=== PATIENT | male | born 1950 | race Caucasian/White ===

== ENCOUNTER 2019-02-19 21:35 | Observation (INO) | payer MEDICARE ==
--- NOTE | 2019-02-19 22:34 | ERPHSYRPT ---
- History of Present Illness Time Seen by Provider: 02/19/19 22:33 Source: patient, family Exam Limitations: no limitations Patient Subjective Stated Complaint: pt states he has been feeling feverish, cough, tired x3 days. pt states he is feeling very tired and body aches when he tries to ambulate. Triage Nursing Assessment: pt rates pain as 5/10 while walking genrally to body Physician History: Pt is here with several days of cough and nausea. Pt notes that he feels that he has been possibly running a fever. Pt notes that he has no appetite and doesn 't feel like he can eat anything. Pt has been able to drink some water and some pepsi. Pt has a Hx of COPD and has had CHF in the past. Pt hsas no knowledge or hx of Atrial fibrilation. Pt is short of breath and is wheezing. Pt doesn't smoke any more. Pt's daughter or young female family member possibly granddaughter is here with him. Timing/Duration: day(s) (3 days, but worse today) Cough Quality/Degree: moderate, productive cough, sputum Possible Cause: occasional episodes Modifying Factors: Improves With: albuterol nebulizer, coughing Associated Symptoms: chest pain/soreness, cough, nasal congestion, wheezing International travel in last 2 weeks: No Allergies/Adverse Reactions: No Known Drug Allergies Allergy (Verified 02/19/19 22:00) Home Medications: Aspirin 81 gm Chew [Baby Aspirin 81 mg Chew] 81 mg PO DAILY 05/14/14 [ History] Atorvastatin Calcium 40 mg PO HS 05/14/14 [History] Citalopram Hydrobromide [Citalopram HBr] 40 mg PO DAILY 05/14/14 [History] Clopidogrel Bisulfate 75 mg [PLAVIX 75 MG Tablet] 75 mg PO DAILY 05/14/14 [History] Furosemide 40 mg PO DAILY 05/14/14 [History] Hydralazine HCl 10 mg PO BID 05/14/14 [History] Isosorbide Dinitrate 10 mg [Isordil 10 MG] 10 mg PO TID 05/14/14 [History] Metoprolol Tartrate 25 mg [Lopressor 25MG Tab] 12.5 mg PO BID 05/14/14 [ History] Hx Tetanus, Diphtheria Vaccination/Date Given: (UNKNOWN) Hx Influenza Vaccination/Date Given: Yes (10/23/2013) Hx Pneumococcal Vaccination/Date Given: Yes (01/01/2014) - Review of Systems Constitutional: Fever, Chills, Fatigue, Lethargy, Malaise Eyes: No Symptoms Ears, Nose, & Throat: Hoarse Respiratory: Cough, Dyspnea, Dyspnea on Exertion ([place]), Wheezing Cardiac: Chest Pain, No Edema, No Syncope Abdominal/Gastrointestinal: Nausea, No Vomiting, No Diarrhea, No Constipation Genitourinary Symptoms: No Symptoms Musculoskeletal: No Symptoms Skin: No Symptoms Neurological: No Symptoms Psychological: No Symptoms Endocrine: No Symptoms All Other Systems: Reviewed and Negative - Past Medical History Pertinent Past Medical History: Yes Neurological History: No Pertinent History ENT History: No Pertinent History Cardiac History: High Cholesterol, Hypertension, Other Respiratory History: COPD Endocrine Medical History: Other Musculoskeletal History: No Pertinent History GI Medical History: No Pertinent History History: Other Psycho-Social History: No Pertinent History Male Reproductive Disorders: No Pertinent History Other Medical History: HYPERLIPIDEMIA. SECONDARY. HYPERPARATHYROIDISM. ARF/ CHRONIC RENAL FAILURE - Past Surgical History Past Surgical History: Yes Neuro Surgical History: No Pertinent History Cardiac: Cardiac Catheterization, Cardiac Stent Respiratory: No Pertinent History Gastrointestinal: No Pertinent History Genitourinary: No Pertinent History Musculoskeletal: No Pertinent History Male Surgical History: No Pertinent History Other Surgical History: DOES HAVE ONE HEART STENT 03/2014, kidney stent 2014 - Social History Smoking Status: Former smoker Exposure to second hand smoke: Yes ([place]) Drug Use: none Patient Lives Alone: No - Nursing Vital Signs Nursing Vital Signs: Initial Vital Signs Temperature 97.4 F 02/19/19 21:43 Pulse Rate 86 02/19/19 21:43 Respiratory Rate 18 02/19/19 21:43 Blood Pressure 111/79 02/19/19 21:43 O2 Sat by Pulse Oximetry 96 02/19/19 21:43 Pain Scale Pain Intensity 5 - Physical Exam General Appearance: no apparent distress, alert, lethargy Eye Exam: PERRL/EOMI, eyes nml inspection, No scleral icterus, No photophobia Ears, Nose, Throat Exam: normal ENT inspection, No pharyngeal erythema, No tonsillar exudate Neck Exam: normal inspection Respiratory Exam: normal breath sounds, prolonged expirations, wheezing, No pleural rub Cardiovascular Exam: regular rate/rhythm, irregular, No murmur, No edema, No pulse deficit Gastrointestinal/Abdomen Exam: soft, normal bowel sounds, No tenderness, No distention, No mass, No guarding, No ecchymosis Rectal Exam: not done Back Exam: normal inspection Extremity Exam: normal inspection, normal range of motion, No tenderness Neurologic Exam: alert, oriented x 3, cooperative, operating room specialist II-XII nml as tested, normal mood/affect, nml cerebellar function, nml station & gait, No motor deficits, No sensory deficit, No disoriented, No motor weakness, No facial droop , No slurred speech, No aphasia Skin Exam: normal color, warm, dry, No rash Lymphatic Exam: No adenopathy SpO2 Interpretation: normal SpO2: 96 O2 Delivery: Nasal Cannula - Course Nursing assessment & vital signs reviewed: Yes EKG Interpreted by Me: RATE ([id number]), NORMAL AXIS, Non-specific ST Changes Rhythm Strip: Atrial Fibrillation Ordered Tests: Active Orders 24 hr Category Date Time Status Admission Status Change [Change to Full Admit] ROUTINE Care 02/20/19 03:10 Active EKG-ER Only STAT Care 02/19/19 22:50 Active IV Insertion STAT Care 02/19/19 22:50 Active CHEST 2 VIEWS (PA AND LAT) Stat Exams 02/19/19 22:53 Taken BLOOD CULTURE Stat Lab 02/19/19 23:17 Received CBC W DIFF Stat Lab 02/19/19 23:00 Completed CMP Stat Lab 02/19/19 23:17 Completed D-DIMER QUANTITATIVE Stat Lab 02/20/19 00:00 Completed Lactic Acid Stat Lab 02/19/19 22:50 Completed Respiratory Therapy Assessment ONCE RT 02/20/19 00:32 Active Transfer Order Routine Transfer 02/20/19 Ordered Medication Summary Generic Name Dose Route Start Last Admin Trade Name Freq PRN Reason Stop Dose Admin Enoxaparin Sodium 70 mg 02/20/19 03:15 Enoxaparin Sodium 1 mg/kg (70 mg) 03/22/19 03:14 SQ Q12H KARISSA Azithromycin 500 mg in 250 mls @ 250 mls/hr 02/20/19 03:09 Zithromax 500 Mg/ 250 Ml Nacl Premix IV 02/20/19 04:08 STAT STA Metoprolol Succinate 25 mg 02/20/19 10:00 Toprol-Xl 25mg Tablets PO 03/22/19 09:59 DAILY KARISSA Ondansetron HCl 4 mg 02/20/19 03:15 Zofran 2 Mg/Ml Multi Dose Vial 20 Ml IV 03/22/19 03:14 Q8H/PRN PRN NAUSEA Discontinued Medications Generic Name Dose Route Start Last Admin Trade Name Freq PRN Reason Stop Dose Admin Acetaminophen 650 mg 02/19/19 22:50 02/19/19 23:10 Tylenol 325 Mg PO 02/19/19 22:51 650 mg STAT ONE Administration Acetaminophen Confirm 02/19/19 23:07 Tylenol 325 Mg Administered 02/19/19 23:08 Dose 650 mg .ROUTE .STK-MED ONE Albuterol/Ipratropium 3 ml 02/19/19 22:50 02/20/19 00:28 Duoneb 0.5-3 Mg/3 Ml Neb IH 02/19/19 22:51 3 ml STAT ONE Administration Albuterol/Ipratropium Confirm 02/20/19 00:25 Duoneb 0.5-3 Mg/3 Ml Neb Administered 02/20/19 00:26 Dose 3 ml IH .STK-MED ONE Sodium Chloride 1,000 mls @ 999 mls/hr 02/19/19 22:50 02/19/19 23:11 Sodium Chloride 0.9% 1000 Ml IV 02/19/19 23:50 999 mls/hr .Q1H1M STA Administration Sodium Chloride Confirm 02/19/19 23:07 Sodium Chloride 0.9% 1000 Ml Administered 02/19/19 23:08 Dose 1,000 mls @ ud .ROUTE .STK-MED ONE Methylprednisolone Sodium Succinate 80 mg 02/20/19 03:08 Solu-Medrol 125 Mg IV 02/20/19 03:09 STAT ONE Ondansetron HCl 4 mg 02/19/19 22:50 02/19/19 23:11 Zofran 4 Mg/2 Ml Vial IV 02/19/19 22:51 4 mg STAT ONE Administration Ondansetron HCl Confirm 02/19/19 23:06 Zofran 4 Mg/2 Ml Vial Administered 02/19/19 23:07 Dose 4 mg .ROUTE .STK-MED ONE Lab/Rad Data: Laboratory Result Diagrams 02/19/19 23:00 12/29/19 23:17 Laboratory Results 02/20/19 02/19/19 02/19/19 Range/Units 00:00 23:17 23:17 WBC (4.0-10.5) K/mm3 RBC (4.1-5.6) M/mm3 Hgb (12.5-18.0) gm/dl Hct (42-50) % MCV (78-100) fl MCH (26-32) pg MCHC (32-36) g/dl RDW (11.5-14.0) % Plt Count (150-450) K/mm3 MPV (6-9.5) fl Gran % (36.0-66.0) % Eos # (Auto) (0-0.5) Absolute Lymphs (auto) (1.0-4.6) Absolute Monos (auto) (0.0-1.3) Lymphocytes % (24.0-44.0) % Monocytes % (0.0-12.0) % Eosinophils % (0.00-5.0) % Basophils % (0.0-0.4) % Absolute Granulocytes (1.4-6.9) Basophils # (0-0.4) D-Dimer 266 (215-500) ng/mL Sodium 136 L (137-145) mmol/L Potassium 3.9 (3.5-5.1) mmol/L Chloride 96 L (98-107) mmol/L Carbon Dioxide 31 H (22-30) mmol/L Anion Gap 12.7 (5-15) MEQ/L BUN 23 H (9-20) mg/dL Creatinine 1.54 H (0.66-1.25) mg/dL Estimated GFR 47.7 ML/MIN Glucose 124 H (74-106) mg/dL Lactic Acid (0.4-2.0) Calcium 8.9 (8.4-10.2) mg/dL Total Bilirubin 0.60 (0.2-1.3) mg/dL AST 33 (17-59) U/L ALT 17 (0-50) U/L Alkaline Phosphatase 84 (38-126) U/L Serum Total Protein 7.4 (6.3-8.2) g/dL Albumin 4.1 (3.5-5.0) g/dL Influenza Type A Ag NEGATIVE (NEGATIVE) Influenza Type B Ag NEGATIVE (NEGATIVE) RSV (PCR) NEGATIVE (Negative) 02/19/19 02/19/19 Range/Units 23:00 22:50 WBC 9.3 (4.0-10.5) K/mm3 RBC 4.82 (4.1-5.6) M/mm3 Hgb 14.3 (12.5-18.0) gm/dl Hct 43.3 (42-50) % MCV 89.8 (78-100) fl MCH 29.7 (26-32) pg MCHC 33.0 (32-36) g/dl RDW 13.9 (11.5-14.0) % Plt Count 154 (150-450) K/mm3 MPV 10.9 H (6-9.5) fl Gran % 83.9 H (36.0-66.0) % Eos # (Auto) 0.01 (0-0.5) Absolute Lymphs (auto) 0.64 L (1.0-4.6) Absolute Monos (auto) 0.84 (0.0-1.3) Lymphocytes % 6.9 L (24.0-44.0) % Monocytes % 9.0 (0.0-12.0) % Eosinophils % 0.1 (0.00-5.0) % Basophils % 0.1 (0.0-0.4) % Absolute Granulocytes 7.81 H (1.4-6.9) Basophils # 0.01 (0-0.4) D-Dimer (215-500) ng/mL Sodium (137-145) mmol/L Potassium (3.5-5.1) mmol/L Chloride (98-107) mmol/L Carbon Dioxide (22-30) mmol/L Anion Gap (5-15) MEQ/L BUN (9-20) mg/dL Creatinine (0.66-1.25) mg/dL Estimated GFR ML/MIN Glucose (74-106) mg/dL Lactic Acid 1.3 (0.4-2.0) Calcium (8.4-10.2) mg/dL Total Bilirubin (0.2-1.3) mg/dL AST (17-59) U/L ALT (0-50) U/L Alkaline Phosphatase (38-126) U/L Serum Total Protein (6.3-8.2) g/dL Albumin (3.5-5.0) g/dL Influenza Type A Ag (NEGATIVE) Influenza Type B Ag (NEGATIVE) RSV (PCR) (Negative) - Progress Progress: improved Air Movement: fair Progress Note: 02/20/19 04:12 Pt negative for the flu or strep and CXR shows only emphysematous changes. D- dimer was negative. Pt in new Atrial fib./EKG. I discussed this pt with Dr. Blake and we decided that his COPD exacerbation and new A.Fib can be tanken care of here and worked out. Pt could have a cardiology consult by [facility]. All labs and x-rays were considered in this pt's placement. - Departure Departure Disposition: In-patient Admission Clinical Impression: COPD with exacerbation, New onset atrial fibrillation Condition: Stable Critical Care Time: No Referrals: YANIV HARO, [facility] [Primary Care Provider] - Instructions: Chronic Obstructive Pulmonary Disease Plan of Treatment: I discussed this pt with Dr. Ellyn Blake and he agreed to admit this pt For monitering sand management of new A. fib and COPD exacerbation as well as pt's nausea.
[2019-02-19] MEDS ORDERED: Zofran 4 MG/2 ML VIAL IV ONE (22:50)
[2019-02-19] MEDS ORDERED: TYLENOL 325 MG PO ONE (22:50)
[2019-02-19] MEDS ORDERED: DUONEB 0.5-3 MG/3 ml Neb IH ONE (22:50)
[2019-02-19] MEDS ORDERED: Sodium Chloride 0.9% 1000 ML 1,000 ML IV STA (22:50)
[2019-02-19] MEDS ORDERED: Zofran 4 MG/2 ML VIAL ONE (23:06)
[2019-02-19] MEDS ORDERED: Sodium Chloride 0.9% 1000 ML 1,000 ML ONE (23:07)
[2019-02-19] MEDS ORDERED: TYLENOL 325 MG ONE (23:07)
[2019-02-19 23:21] LABS: Absolute Neutrophil Ct (ANC) 7.81 (1.4-6.9); BASOPHIL % 0.1 % (0.0-0.4); Basophil (Absolute #) 0.01 (0-0.4); Eosinophil % 0.1 % (0.00-5.0); Eosinophil (Absolute #) 0.01 (0-0.5); Hematocrit 43.3 % (42-50); Hemoglobin 14.3 gm/dl (12.5-18.0); Lymphocyte (Absolute #) 0.64 (1.0-4.6); Lymphocytes % 6.9 % (24.0-44.0); Mean Cell Volume 89.8 fl (78-100); Mean Corpuscular Hemoglobin 29.7 pg (26-32); Mean Platelet Volume 10.9 fl (6-9.5); Monocyte (Absolute #) 0.84 (0.0-1.3); Neutrophil % 83.9 % (36.0-66.0); Platelet Count 154 K/mm3 (150-450); Red Blood Count 4.82 M/mm3 (4.1-5.6); Red Cell Distribution Width 13.9 % (11.5-14.0); White Blood Count 9.3 K/mm3 (4.0-10.5)
[2019-02-19 23:31] LABS: ALBUMIN 4.1 g/dL (3.5-5.0); ANION GAP 12.7 MEQ/L (5-15); BILIRUBIN,TOTAL 0.6 mg/dL (0.2-1.3); Calcium 8.9 mg/dL (8.4-10.2); Creatinine 1 1.54 mg/dL (0.66-1.25); Potassium 3.9 mmol/L (3.5-5.1); Total Protein 7.4 g/dL (6.3-8.2)
[2019-02-19 23:58] LABS: INFLUENZA A NEGATIVE (NEGATIVE); INFLUENZA B NEGATIVE (NEGATIVE); RESPIRATORY SYNCTIAL VIRUS NEGATIVE (Negative)
[2019-02-20] MEDS ORDERED: DUONEB 0.5-3 MG/3 ml Neb IH ONE (00:25)
[2019-02-20] MEDS ORDERED: solu-MEDROL 125 MG IV ONE (03:08)
[2019-02-20] MEDS ORDERED: Zithromax 500 MG/ 250 ML NaCl Premix 500 MG/250 ML IVPB IV STA (03:09)
[2019-02-20] MEDS ORDERED: ENOXAPARIN SODIUM SQ SCH (03:15)
[2019-02-20] MEDS ORDERED: Zofran 2 MG/ML MULTI DOSE VIAL 20 ML IV PRN (03:15)
[2019-02-20] MEDS ORDERED: solu-MEDROL 125 MG ONE (05:21)
[2019-02-20] MEDS: DUONEB 0.5-3 MG/3 ml Neb IH SCH ×4 (05:45→19:37)
--- NOTE | 2019-02-20 08:31 | PCM.HP ---
History of Present Illness - Chief Complaint Chief Complaint: exacerbation COPD, new onset Atrial fibrillation History of Present Illness: is a 69 year old male with no local physician who presented to the ER last night with a several day history of cough, shortness of breath and flu- like symptoms. He has copd and sees Dr Mcdermott and is also established with Dr Chilel, follows with ANUEL Estrada in [place]. His cough is not productive and he is more short of breath than usual, no chest pain. - Review of Systems Constitutional: No Fever, No Chills Respiratory: Cough, Short Of Breath Cardiac: No Chest Pain, No Syncope Abdominal/Gastrointestinal: No Abdominal Pain, No Nausea, No Vomiting, No Diarrhea Skin: No Rash All Other Systems: Reviewed and Negative Medications & Allergies Home Medications: Home Medication List Aspirin 81 gm Chew [Baby Aspirin 81 mg Chew] 81 mg PO DAILY 05/14/14 [ History Confirmed 05/14/14] Atorvastatin Calcium 40 mg PO HS 05/14/14 [History Confirmed 05/14/14] Citalopram Hydrobromide [Citalopram HBr] 40 mg PO DAILY 05/14/14 [History Confirmed 05/14/14] Clopidogrel Bisulfate 75 mg [PLAVIX 75 MG Tablet] 75 mg PO DAILY 05/14/14 [History Confirmed 05/14/14] Furosemide 40 mg PO DAILY 05/14/14 [History Confirmed 05/14/14] Hydralazine HCl 10 mg PO BID 05/14/14 [History Confirmed 05/14/14] Isosorbide Dinitrate 10 mg [Isordil 10 MG] 10 mg PO TID 05/14/14 [History Confirmed 05/14/14] Metoprolol Tartrate 25 mg [Lopressor 25MG Tab] 12.5 mg PO BID 05/14/14 [ History Confirmed 05/14/14] Allergies/Adverse Reactions: Allergies Allergy/AdvReac Type Severity Reaction Status Date / Time No Known Drug Allergies Allergy Verified 02/19/19 22:00 - Past Medical History Past Medical History: Yes Neurological History: No Pertinent History ENT History: No Pertinent History Cardiac History: High Cholesterol, Hypertension, Other Respiratory History: COPD Endocrine Medical History: Other Musculoskelatal History: No Pertinent History GI Medical History: No Pertinent History History: Other Pyscho-Social History: No Pertinent History Male Reproductive Disorders: No Pertinent History Comment: HYPERLIPIDEMIA. SECONDARY. HYPERPARATHYROIDISM. ARF/CHRONIC RENAL FAILURE - Past Surgical History Past Surgical History: Yes Neuro Surgical History: No Pertinent History Cardiac History: Cardiac Catheterization, Cardiac Stent Respiratory Surgery: No Pertinent History GI Surgical History: No Pertinent History Genitourinary Surgical Hx: No Pertinent History Musculskeletal Surgical Hx: No Pertinent History Male Surgical History: No Pertinent History Other Surgical History: DOES HAVE ONE HEART STENT 03/2014, kidney stent 2014 - Social History Smoking Status: Former smoker Exposure to second hand smoke: No Alcohol: None Drug Use: none - Physical Exam Vital Signs: Vital Signs - 24 hr Temp Pulse Resp BP Pulse Ox 02/20/19 07:21 98.1 F 62 20 122/80 96 02/20/19 05:43 55 L 18 97 02/20/19 04:36 98.0 F 57 L 18 124/86 97 02/20/19 04:16 96 02/20/19 03:00 62 16 93/44 96 02/20/19 01:00 86 18 136/69 92 L 02/20/19 00:32 76 18 94 L 02/20/19 00:03 74 18 115/76 94 L 02/19/19 23:36 85 18 130/73 94 L 02/19/19 22:29 111 H 20 132/85 96 02/19/19 21:43 97.4 F 86 18 111/79 94 L Oxygen-Last 24 hours O2 Percentage 2 Liters = 28% O2 Percentage 2 Liters = 28% O2 Percentage 2 Liters = 28% General Appearance: no apparent distress Neurologic Exam: alert, oriented x 3, cooperative Eye Exam: PERRL/EOMI, eyes nml inspection Respiratory Exam: prolonged expirations, wheezing Cardiovascular Exam: irregular Gastrointestinal/Abdomen Exam: soft, normal bowel sounds, No tenderness, No mass Extremity Exam: normal inspection, normal range of motion, pelvis stable Skin Exam: normal color, warm, dry, No rash Results - Labs Lab/Micro Results: Lab Results-Last 24 Hours 02/19/19 02/19/19 02/19/19 Range/Units 22:50 23:00 23:17 WBC 9.3 (4.0-10.5) K/mm3 RBC 4.82 (4.1-5.6) M/mm3 Hgb 14.3 (12.5-18.0) gm/dl Hct 43.3 (42-50) % MCV 89.8 (78-100) fl MCH 29.7 (26-32) pg MCHC 33.0 (32-36) g/dl RDW 13.9 (11.5-14.0) % Plt Count 154 (150-450) K/mm3 MPV 10.9 H (6-9.5) fl Gran % 83.9 H (36.0-66.0) % Eos # (Auto) 0.01 (0-0.5) Absolute Lymphs (auto) 0.64 L (1.0-4.6) Absolute Monos (auto) 0.84 (0.0-1.3) Lymphocytes % 6.9 L (24.0-44.0) % Monocytes % 9.0 (0.0-12.0) % Eosinophils % 0.1 (0.00-5.0) % Basophils % 0.1 (0.0-0.4) % Absolute Granulocytes 7.81 H (1.4-6.9) Basophils # 0.01 (0-0.4) D-Dimer (215-500) ng/mL Sodium 136 L (137-145) mmol/L Potassium 3.9 (3.5-5.1) mmol/L Chloride 96 L (98-107) mmol/L Carbon Dioxide 31 H (22-30) mmol/L Anion Gap 12.7 (5-15) MEQ/L BUN 23 H (9-20) mg/dL Creatinine 1.54 H (0.66-1.25) mg/dL Estimated GFR 47.7 ML/MIN Glucose 124 H (74-106) mg/dL Lactic Acid 1.3 (0.4-2.0) Calcium 8.9 (8.4-10.2) mg/dL Total Bilirubin 0.60 (0.2-1.3) mg/dL AST 33 (17-59) U/L ALT 17 (0-50) U/L Alkaline Phosphatase 84 (38-126) U/L Serum Total Protein 7.4 (6.3-8.2) g/dL Albumin 4.1 (3.5-5.0) g/dL Influenza Type A Ag (NEGATIVE) Influenza Type B Ag (NEGATIVE) RSV (PCR) (Negative) 02/19/19 02/20/19 Range/Units 23:17 00:00 WBC (4.0-10.5) K/mm3 RBC (4.1-5.6) M/mm3 Hgb (12.5-18.0) gm/dl Hct (42-50) % MCV (78-100) fl MCH (26-32) pg MCHC (32-36) g/dl RDW (11.5-14.0) % Plt Count (150-450) K/mm3 MPV (6-9.5) fl Gran % (36.0-66.0) % Eos # (Auto) (0-0.5) Absolute Lymphs (auto) (1.0-4.6) Absolute Monos (auto) (0.0-1.3) Lymphocytes % (24.0-44.0) % Monocytes % (0.0-12.0) % Eosinophils % (0.00-5.0) % Basophils % (0.0-0.4) % Absolute Granulocytes (1.4-6.9) Basophils # (0-0.4) D-Dimer 266 (215-500) ng/mL Sodium (137-145) mmol/L Potassium (3.5-5.1) mmol/L Chloride (98-107) mmol/L Carbon Dioxide (22-30) mmol/L Anion Gap (5-15) MEQ/L BUN (9-20) mg/dL Creatinine (0.66-1.25) mg/dL Estimated GFR ML/MIN Glucose (74-106) mg/dL Lactic Acid (0.4-2.0) Calcium (8.4-10.2) mg/dL Total Bilirubin (0.2-1.3) mg/dL AST (17-59) U/L ALT (0-50) U/L Alkaline Phosphatase (38-126) U/L Serum Total Protein (6.3-8.2) g/dL Albumin (3.5-5.0) g/dL Influenza Type A Ag NEGATIVE (NEGATIVE) Influenza Type B Ag NEGATIVE (NEGATIVE) RSV (PCR) NEGATIVE (Negative) - Radiology Impressions Radiology Exams & Impressions: Radiology Procedures Category Date Time Status CHEST 2 VIEWS (PA AND LAT) Stat Exams 02/19/19 22:53 Taken - Other Procedures and Tests Respiratory Therapy 02/20/19 05:43 Oxygen NASAL CANNULA 2 lpm 02/21/19 07:00 Peak Expiratory Flow Rate DAILY Respiratory Therapy Assessment DAILY Assessment/Plan (1) COPD with exacerbation Current Visit: Yes Status: Acute Assessment & Plan: rocephin/zithromax and IV solu medrol with nebs at this time Code(s): J44.1 - CHRONIC OBSTRUCTIVE PULMONARY DISEASE W (ACUTE) EXACERBATION (2) New onset atrial fibrillation Current Visit: Yes Status: Acute Assessment & Plan: consult with hussain, currently on lovenox. will check tsh, echo and troponin Code(s): I48.91 - UNSPECIFIED ATRIAL FIBRILLATION
--- NOTE | 2019-02-20 08:59 | XRAY ---
Indication: Cough and congestion. Comparison: May 14, 2014. PA/lateral chest now hyperinflated and clear with incidental nipple shadows. Heart and mediastinal structures within normal limits. Bony thorax intact with mild degenerative changes. Impression: Nonacute hyperinflated chest.
[2019-02-20] MEDS: ROCEPHIN 1 Gm-D5w 50 ml Bag** 1 G/50 ML IVPB IV SCH (09:30)
[2019-02-20] MEDS ORDERED: Toprol-Xl 25MG Tablets PO SCH (10:00)
[2019-02-20] MEDS: solu-MEDROL 125 MG IV SCH ×3 (11:58→23:54)
[2019-02-20] MEDS ORDERED: Zofran 4 MG/2 ML VIAL IV PRN (12:35)
[2019-02-20] MEDS: Ranexa 500 MG PO SCH ×2 (14:25→22:41)
[2019-02-20] MEDS: Apresoline 25 MG TABLET PO SCH ×2 (14:25→22:41)
--- NOTE | 2019-02-20 14:55 | ECHO ---
DATE OF PROCEDURE: 02/20/2019 CLINICAL INFORMATION: New onset atrial fibrillation. The M-mode 2D, and Doppler echocardiogram including color flow Doppler shows the left ventricle is normal in size at 5.0 cm. There is no thrombus present. The septal wall thickness is increased at 1.3 cm. The left ventricular posterior wall thickness is increased at 1.2 cm. There is normal contractility of the left ventricle with an ejection fraction calculated at 56%. The right ventricle is grossly normal. The left atrium is not well visualized. The interatrial septum is not well visualized. The right atrium is not well visualized. The aortic valve opens well. There is no aortic regurgitation present. The mitral valve is normal. There is a trace amount of tricuspid regurgitation associated with annular calcification. The pulmonic valve is not well visualized. The aortic root is normal at 3.5 cm. There is a small lateral pericardial effusion present. IMPRESSION: 1) NORMAL CONTRACTILITY OF THE LEFT VENTRICLE. 2) MILD CONCENTRIC LEFT VENTRICULAR HYPERTROPHY. 3) SMALL LATERAL PERICARDIAL EFFUSION. 4) TRACE TRICUSPID REGURGITATION ASSOCIATED WITH ANNULAR CALCIFICATION.
[2019-02-20] MEDS: Advair Hfa 230/21 Mcg COMMON CANISTER IH SCH (19:39)
[2019-02-20] MEDS ORDERED: NON-FORMULARY ITEM (Atorvastatin Calcium [Atorvastatin Calcium] 40 MG) PO SCH (22:00)
[2019-02-20] MEDS: ELIQUIS 2.5 MG TABLET PO SCH (22:40)
[2019-02-20] MEDS: Lopressor 25MG Tab PO SCH (22:40)
[2019-02-20] MEDS: ZOCOR 20MG PO SCH (22:41)
[2019-02-21 05:56] LABS: Absolute Neutrophil Ct (ANC) 10.86 (1.4-6.9); BASOPHIL % 0.1 % (0.0-0.4); Basophil (Absolute #) 0.01 (0-0.4); Eosinophil % 0.1 % (0.00-5.0); Eosinophil (Absolute #) 0.01 (0-0.5); Hematocrit 40.5 % (42-50); Lymphocyte (Absolute #) 0.76 (1.0-4.6); Lymphocytes % 6.2 % (24.0-44.0); Mean Cell Volume 90.6 fl (78-100); Mean Corpuscular Hemoglobin 29.1 pg (26-32); Mean Corpuscular Hgb Concent. 32.1 g/dl (32-36); Mean Platelet Volume 11.3 fl (6-9.5); Monocytes % 4.9 % (0.0-12.0); Neutrophil % 88.7 % (36.0-66.0); Platelet Count 177 K/mm3 (150-450); Red Blood Count 4.47 M/mm3 (4.1-5.6); Red Cell Distribution Width 13.8 % (11.5-14.0); White Blood Count 12.2 K/mm3 (4.0-10.5)
[2019-02-21] MEDS: solu-MEDROL 125 MG IV SCH ×3 (06:00→22:33)
[2019-02-21 06:20] LABS: ANION GAP 15.1 MEQ/L (5-15); Calcium 9.3 mg/dL (8.4-10.2); Creatinine 1 1.47 mg/dL (0.66-1.25); Potassium 4.1 mmol/L (3.5-5.1); TROPONIN 0.012 ng/mL (0.000-0.034)
[2019-02-21] MEDS: DUONEB 0.5-3 MG/3 ml Neb IH SCH ×4 (07:07→19:48)
[2019-02-21] MEDS: Advair Hfa 230/21 Mcg COMMON CANISTER IH SCH ×2 (07:09→19:50)
--- NOTE | 2019-02-21 08:28 | PCM.NOTE ---
Date and Time: 02/21/19823 Subjective Assessment: Pt has no complaints this morning, says his breathing is "fine," on 2L O2 here but not on any at home. Thinks he saw Dr. Chilel yesterday. Thought had already been in this morning (I think he is just confused by which staff person is which). HR has been in the 50s-60s. Says he's on coumadin at home. Objective Exam General Appearance: no apparent distress, alert Neurologic Exam: cooperative, normal mood/affect Skin Exam: normal color, warm, dry, No rash Respiratory Exam: lungs clear, diminished breath sounds (fair air exchange), No crackles/rales, No rhonchi, No wheezing Cardiovascular Exam: regular rate/rhythm, normal heart sounds, No murmur Gastrointestinal/Abdomen Exam: soft, normal bowel sounds, No tenderness, No distention, No mass, No guarding, No rebound Extremity Exam: No pedal edema, No swelling Back Exam: normal inspection, No rash OBJECTIVE DATA Vital Signs: Vital Signs - 24 hr Temp Pulse Resp BP Pulse Ox 02/21/19 07:00 56 L 18 97 02/21/19 04:00 97.8 F 58 L 18 118/60 96 02/21/19 00:00 97.6 F 57 L 16 122/60 95 02/20/19 20:00 98.3 F 68 18 137/62 93 L 02/20/19 19:40 65 18 96 02/20/19 16:26 97.8 F 68 20 114/68 97 02/20/19 14:32 64 18 95 02/20/19 12:29 97.5 F 68 20 111/62 96 02/20/19 10:57 53 L 18 96 Oxygen-Last 24 hours O2 Percentage 2 Liters = 28% O2 Percentage 2 Liters = 28% O2 Percentage 2 Liters = 28% Pain Assessment - Last Documented Pain Intensity 0 Pain Scale Used 0-10 Pain Scale Intake and Output: Intake & Output 02/18/19 02/19/19 02/20/19 02/21/19 11:59 11:59 11:59 11:59 Intake Total 120 1320 Output Total 850 Balance 120 470 Weight 68.8 kg Lab Results: Lab Results-Last 24 Hours 02/20/19 02/20/19 02/21/19 Range/Units 08:40 08:40 05:24 WBC 12.2 H (4.0-10.5) K/mm3 RBC 4.47 (4.1-5.6) M/mm3 Hgb 13.0 (12.5-18.0) gm/dl Hct 40.5 L (42-50) % MCV 90.6 (78-100) fl MCH 29.1 (26-32) pg MCHC 32.1 (32-36) g/dl RDW 13.8 (11.5-14.0) % Plt Count 177 (150-450) K/mm3 MPV 11.3 H (6-9.5) fl Gran % 88.7 H (36.0-66.0) % Eos # (Auto) 0.01 (0-0.5) Absolute Lymphs (auto) 0.76 L (1.0-4.6) Absolute Monos (auto) 0.60 (0.0-1.3) Lymphocytes % 6.2 L (24.0-44.0) % Monocytes % 4.9 (0.0-12.0) % Eosinophils % 0.1 (0.00-5.0) % Basophils % 0.1 (0.0-0.4) % Absolute Granulocytes 10.86 H (1.4-6.9) Basophils # 0.01 (0-0.4) Sodium (137-145) mmol/L Potassium (3.5-5.1) mmol/L Chloride (98-107) mmol/L Carbon Dioxide (22-30) mmol/L Anion Gap (5-15) MEQ/L BUN (9-20) mg/dL Creatinine (0.66-1.25) mg/dL Estimated GFR ML/MIN Glucose (74-106) mg/dL Calcium (8.4-10.2) mg/dL Troponin I 0.018 (0.000-0.034) ng/mL TSH 3rd Generation 0.419 L (0.47-4.68) mIU/L 02/21/19 Range/Units 05:24 WBC (4.0-10.5) K/mm3 RBC (4.1-5.6) M/mm3 Hgb (12.5-18.0) gm/dl Hct (42-50) % MCV (78-100) fl MCH (26-32) pg MCHC (32-36) g/dl RDW (11.5-14.0) % Plt Count (150-450) K/mm3 MPV (6-9.5) fl Gran % (36.0-66.0) % Eos # (Auto) (0-0.5) Absolute Lymphs (auto) (1.0-4.6) Absolute Monos (auto) (0.0-1.3) Lymphocytes % (24.0-44.0) % Monocytes % (0.0-12.0) % Eosinophils % (0.00-5.0) % Basophils % (0.0-0.4) % Absolute Granulocytes (1.4-6.9) Basophils # (0-0.4) Sodium 137 (137-145) mmol/L Potassium 4.1 (3.5-5.1) mmol/L Chloride 100 (98-107) mmol/L Carbon Dioxide 26 (22-30) mmol/L Anion Gap 15.1 H (5-15) MEQ/L BUN 33 H (9-20) mg/dL Creatinine 1.47 H (0.66-1.25) mg/dL Estimated GFR 50.3 ML/MIN Glucose 137 H (74-106) mg/dL Calcium 9.3 (8.4-10.2) mg/dL Troponin I 0.012 (0.000-0.034) ng/mL TSH 3rd Generation (0.47-4.68) mIU/L Radiology Exams: Radiology Procedures Category Date Time Status CHEST 2 VIEWS (PA AND LAT) Stat Exams 02/19/19 22:53 Completed ECHO W/2D AND DOPPLER [US] Routine Exams 02/20/19 10:43 Draft Assessment/Plan (1) COPD with exacerbation Current Visit: Yes Status: Acute Assessment & Plan: on rocephin and zithromax. will decrease solumedrol today. Advised he should stay in until he's off oxygen but I'm unsure if he understood that. Code(s): J44.1 - CHRONIC OBSTRUCTIVE PULMONARY DISEASE W (ACUTE) EXACERBATION (2) New onset atrial fibrillation Current Visit: Yes Status: Acute Assessment & Plan: on Eliquis currently. Code(s): I48.91 - UNSPECIFIED ATRIAL FIBRILLATION
[2019-02-21] MEDS ORDERED: NON-FORMULARY ITEM (Fluticasone/Vilanterol [Breo Ellipta 100-25 Mcg Inh] 1 PUFF) IH SCH (10:00)
[2019-02-21] MEDS: Ranexa 500 MG PO SCH ×2 (10:30→22:22)
[2019-02-21] MEDS: Apresoline 25 MG TABLET PO SCH ×3 (10:30→22:22)
[2019-02-21] MEDS: ELIQUIS 2.5 MG TABLET PO SCH ×2 (10:30→22:22)
[2019-02-21] MEDS: ROCEPHIN 1 Gm-D5w 50 ml Bag** 1 G/50 ML IVPB IV SCH (10:30)
[2019-02-21] MEDS: Lopressor 25MG Tab PO SCH ×2 (10:30→22:22)
[2019-02-21] MEDS: Zithromax 500 MG/ 250 ML NaCl Premix 500 MG/250 ML IVPB IV SCH (11:09)
[2019-02-21] MEDS ORDERED: Ativan 1 MG PO PRN (20:55)
[2019-02-21] MEDS: ZOCOR 20MG PO SCH (22:22)
[2019-02-22] MEDS: DUONEB 0.5-3 MG/3 ml Neb IH SCH (07:41)
[2019-02-22] MEDS: Advair Hfa 230/21 Mcg COMMON CANISTER IH SCH (07:42)
[2019-02-22] MEDS: solu-MEDROL 125 MG IV SCH (07:53)
[2019-02-22] MEDS: ROCEPHIN 1 Gm-D5w 50 ml Bag** 1 G/50 ML IVPB IV SCH (10:08)
[2019-02-22] MEDS: Apresoline 25 MG TABLET PO SCH (10:08)
[2019-02-22] MEDS: Ranexa 500 MG PO SCH (10:08)
[2019-02-22] MEDS: ELIQUIS 2.5 MG TABLET PO SCH (10:08)
[2019-02-22] MEDS: Lopressor 25MG Tab PO SCH (10:08)
[2019-02-22] MEDS: Zithromax 500 MG/ 250 ML NaCl Premix 500 MG/250 ML IVPB IV SCH (10:49)
[2019-02-22 11:19] VITALS: BP 133/60; PULSE 69; O2SAT 91
--- NOTE | 2019-02-22 12:48 | PCM.DCORD ---
- Discharge Discharge Date: 02/22/19 Disposition: Home, Self-Care Condition: Good Prescriptions: New Cefdinir 300 mg PO BID #10 capsule Prednisone 20 mg [Deltasone 20 mg] 20 mg PO UD #9 tablet Azithromycin [Zithromax] 250 mg PO DAILY #3 tablet Continue Furosemide 40 mg PO BID PRN PRN PRN Reason: greater than 1lb weight gain Atorvastatin Calcium 40 mg PO HS Metoprolol Tartrate 25 mg [Lopressor 25MG Tab] 25 mg PO BID Ranolazine [Ranolazine ER] 500 mg PO BID Hydralazine HCl 50 mg PO TID Fluticasone/Vilanterol [Breo Ellipta 100-25 Mcg INH] 1 puff IH DAILY Apixaban [Eliquis] 5 mg PO BID Albuterol Sulfate [Proair Hfa] 2 puff IH QID Follow up with: YANIV HARO NP [Primary Care Provider] - 1 Week Nic Cali MD [CONSULTING PHYSICIAN] - 02/28/19 1:00 pm
--- NOTE | 2019-02-24 08:09 | DS ---
DISCHARGE DIAGNOSES: 1) CHRONIC OBSTRUCTIVE PULMONARY DISEASE EXACERBATION. 2) ATRIAL FIBRILLATION. 3) CORONARY ARTERY DISEASE. 4) SMALL PERICARDIAL EFFUSION. DISCHARGE PHYSICAL EXAMINATION: VITALS: Temperature current 98F, temperature max 98.3F, heart rate 69, respiratory rate 20, blood pressure 133/60, weight 58.8. Oxygen saturation 91 to 94% on room air. GENERAL: The patient is a pleasant man lying in bed in no acute distress. CVS: He has a regular rate and rhythm. No murmurs, gallops or rubs are appreciated. CHEST: Clear to auscultation bilaterally. No crackles or wheezes. ABDOMEN: Soft, nontender, nondistended with normal bowel sounds. EXTREMITIES: No clubbing, cyanosis or edema. SKIN: Warm, dry and intact. HOSPITAL COURSE: 1) CHRONIC OBSTRUCTIVE PULMONARY DISEASE EXACERBATION: He was on Rocephin and azithromycin as well as IV Solu-Medrol. I sent him home to complete a total of five day course of azithromycin and to complete a course of Rocephin as well as oral prednisone. 2) ATRIAL FIBRILLATION: It is unclear if this is new onset or not. He is already on Eliquis so will continue with this. His cardiology group was consulted but was unable to complete the consult due to the holiday. He had an appointment set up with Dr. Clai on 02/28/2019. 3) CORONARY ARTERY DISEASE: He was continued on his home medications. 4) SMALL PERICARDIAL EFFUSION: This was noted on his echo that was read by his cardiology group but I do not think that it is causing him any kind of problems again noticed to be very small. 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 DISCHARGE MEDICATIONS: Please see the discharge order. FOLLOW UP: Follow up with his primary care nurse practitioner or doctor as well as his chemical operations and training. DISPOSITION: The patient was discharged home in fair condition.
== END 2019-02-22 13:55 | disposition home or self-care (01) ==
LOC: ED 21:35 → INTOOBSV 02-20 04:28 → MED SURG 02-20 04:28 → OBSVTOIN 02-20 04:28
PROVIDERS: ADMIT Family Medicine; ATTEND Family Medicine
DX: J44.1 Chronic obstructive pulmonary disease with (acute) exacerbation (principal); I48.91 Unspecified atrial fibrillation; I25.10 Atherosclerotic heart disease of native coronary artery without angina pectoris; I31.3 Pericardial effusion (noninflammatory); I10 Essential (primary) hypertension; E78.00 Pure hypercholesterolemia, unspecified; E78.5 Hyperlipidemia, unspecified; N25.81 Secondary hyperparathyroidism of renal origin; Z79.01 Long term (current) use of anticoagulants; Z79.899 Other long term (current) drug therapy
CPT/HCPCS: 36000; 36415; 71046; 80048; 80053; 83605; 84443; 84484; 85025; 85379; 87040; 87631; 93005; 93268; 93306; 94150; 94640; 94760; 96374; 99285; G0378; 96375; J0456; J0696; J1650; J2405; J2930; A9270-GY

== ENCOUNTER 2022-07-25 21:04 | Inpatient (IN) | payer MEDICARE ==
[2022-07-25] MEDS ORDERED: solu-MEDROL 125 MG, Sterile H2O 10 ml 2 ML IV ONE ×2 (21:29)
[2022-07-25] MEDS ORDERED: DUONEB 0.5-3 MG/3 ml Neb IH ONE ×2 (21:29→21:32)
[2022-07-25] MEDS ORDERED: ROCEPHIN 1 Gm-D5w 50 ml Bag** 1 G/50 ML IVPB IV STA (21:29)
[2022-07-25] MEDS ORDERED: Sodium Chloride 0.9% 1000 ML 1,000 ML IV SCH (21:30)
[2022-07-25] MEDS ORDERED: Sodium Chloride 0.9% 1000 ML 1,000 ML ONE (21:34)
[2022-07-25] MEDS ORDERED: solu-MEDROL ONE (21:34)
[2022-07-25] MEDS ORDERED: Sterile H2O 10 ml IJ ONE (21:34)
[2022-07-25] MEDS ORDERED: ROCEPHIN 1 Gm-D5w 50 ml Bag** 1 G/50 ML IVPB IV ONE (21:35)
[2022-07-25 21:37] LABS: Absolute Neutrophil Ct (ANC) 5.28 x10^3/uL (1.4-6.9); BASOPHIL % 0.5 % (0.0-0.4); Basophil (Absolute #) 0.04 x10^3/uL (0-0.4); Eosinophil % 1.9 % (0.00-5.0); Eosinophil (Absolute #) 0.16 x10^3/uL (0-0.5); Hematocrit 40.7 % (42-50); IMMATURE GRAN # 0.05 x10^3u/L (0.00-0.03); IMMATURE GRAN % 0.6 % (0.00-0.4); Lymphocyte (Absolute #) 1.83 x10^3/uL (1.0-4.6); Lymphocytes % 21.9 % (24.0-44.0); Mean Cell Volume 92.1 fL (78-100); Mean Corpuscular Hemoglobin 29.4 pg (26-32); Mean Corpuscular Hgb Concent. 31.9 g/dL (32-36); Mean Platelet Volume 9.9 fL (7.5-11.0); Neutrophil % 63.1 % (36.0-66.0); Platelet Count 252 x10^3/uL (150-450); Red Blood Count 4.42 x10^6/uL (4.1-5.6); Red Cell Distribution Width 13.4 % (11.5-14.0); White Blood Count 8.4 x10^3/uL (4.0-10.5)
--- NOTE | 2022-07-25 21:38 | ERPHSYRPT ---
- History of Present Illness Time Seen by Provider: 07/25/22 21:32 Source: patient, family Exam Limitations: no limitations Physician History: Pt is 72 yr old COPD pt with new SOBreath and hoarseness. Also loss of taste his PMD attributed to his not rinsing out from inhaler and resulting 10 pound wt loss. No reported fever . No CP reported. Abd nontender without mass. Bilateral rhonchi lungs. confirmed HX with family in ER independently. Discussed risk/benefit of labs - CBC, CMP, Lactate, Trop , BNP, D Dimer, EKG , CXR as well as meds Duoneb and solumedrol and they wish to proceed - results discussed. Hx CAD stent and renal stent and CRD noted and discussed with pt and family. Timing/Duration: day(s) Severity of Dyspnea-Max: moderate Severity of Dyspnea-Current: moderate Possible Cause: frequent episodes Modifying Factors: Improves With: albuterol inhaler, coughing Associated Symptoms: cough, loss of appetite Allergies/Adverse Reactions: No Known Drug Allergies Allergy (Verified 02/19/19 22:00) Home Medications: Atorvastatin Calcium 40 mg PO HS 05/14/14 [History] Furosemide 40 mg PO BID PRN PRN 05/14/14 [History] Metoprolol Tartrate 25 mg [Lopressor 25MG Tab] 25 mg PO BID 05/14/14 [History] Albuterol Sulfate [Proair Hfa] 2 puff IH QID 02/20/19 [History] Apixaban [Eliquis] 5 mg PO BID 02/20/19 [History] Hydralazine HCl 50 mg PO TID 02/20/19 [History] Ranolazine [Ranolazine ER] 500 mg PO BID 02/20/19 [History] Fluticasone/Umeclidin/Vilanter [Trelegy Ellipta 100-62.5-25] 1 each IH DAILY 07/25/22 [History] Hx Tetanus, Diphtheria Vaccination/Date Given: (UNKNOWN) Hx Influenza Vaccination/Date Given: Yes (10/23/2013) Hx Pneumococcal Vaccination/Date Given: Yes (01/01/2014) - Review of Systems Constitutional: No Fever, No Chills Eyes: No Symptoms Ears, Nose, & Throat: No Symptoms Respiratory: Cough, Dyspnea Cardiac: No Chest Pain, No Edema, No Syncope Abdominal/Gastrointestinal: Appetite Changes, No Abdominal Pain, No Nausea, No Vomiting, No Diarrhea Genitourinary Symptoms: No Dysuria Musculoskeletal: No Back Pain, No Neck Pain Skin: No Rash Neurological: No Dizziness, No Focal Weakness, No Sensory Changes Psychological: No Symptoms Endocrine: No Symptoms Hematologic/Lymphatic: No Symptoms Immunological/Allergic: No Symptoms All Other Systems: Reviewed and Negative - Past Medical History Pertinent Past Medical History: Yes Neurological History: No Pertinent History ENT History: No Pertinent History Cardiac History: High Cholesterol, Hypertension, Other Respiratory History: COPD Endocrine Medical History: Other Musculoskeletal History: No Pertinent History GI Medical History: No Pertinent History History: Other Psycho-Social History: No Pertinent History Male Reproductive Disorders: No Pertinent History Other Medical History: HYPERLIPIDEMIA. SECONDARY. HYPERPARATHYROIDISM. ARF/CHRONIC RENAL FAILURE - Past Surgical History Past Surgical History: Yes Neuro Surgical History: No Pertinent History Cardiac: Cardiac Catheterization, Cardiac Stent Respiratory: No Pertinent History Gastrointestinal: No Pertinent History Genitourinary: No Pertinent History Musculoskeletal: No Pertinent History Male Surgical History: No Pertinent History Other Surgical History: DOES HAVE ONE HEART STENT 03/2014, kidney stent 2014 - Social History Smoking Status: Former smoker Exposure to second hand smoke: No Drug Use: none Patient Lives Alone: No - Nursing Vital Signs Nursing Vital Signs: Initial Vital Signs Pulse Rate 54 L 07/25/22 21:09 Respiratory Rate 16 07/25/22 21:09 Blood Pressure 159/79 07/25/22 21:09 O2 Sat by Pulse Oximetry 99 07/25/22 21:09 Pain Scale Pain Intensity 0 - Physical Exam General Appearance: no apparent distress, alert Eye Exam: PERRL/EOMI Ears, Nose, Throat Exam: pharyngeal erythema Neck Exam: normal inspection, supple Respiratory Exam: airway intact, rhonchi Cardiovascular/Chest Exam: normal heart sounds, regular rate/rhythm Abdominal/Gastrointestinal Exam: soft, No tenderness, No distention, No mass Extremity Exam: non-tender, normal range of motion, normal inspection, no calf tenderness, no pedal edema Peripheral Pulses Exam: carotid (R): 2+, carotid (L): 2+, femoral (R): 2+, femoral (L): 2+, dorsalis-pedis (R): 2+, dorsalis-pedis (L): 2+ Neurologic Exam: alert, oriented x 3, cooperative, 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 nml as tested, nml station & gait, sensation nml, No motor deficits Skin Exam: normal color, warm, No dry SpO2 Interpretation: normal SpO2: 96 O2 Delivery: Room Air - Course Nursing assessment & vital signs reviewed: Yes EKG Interpreted by Me: Sinus Rhythm, NORMAL AXIS, NORMAL INTERVALS, Non-specific ST Changes, Other (poor r wave progression) - Radiology Exams Chest X-ray Interpretation: Reviewed by me, Other (interstitial changes) Ordered Tests: Active Orders 24 hr Category Date Time Status Patient Access STAT Care 07/25/22 21:31 Active EKG-ER Only STAT Care 07/25/22 21:29 Active IV Insertion STAT Care 07/25/22 21:29 Active Pulse Oximetry (ED) STAT Care 07/25/22 21:29 Active CHEST 1 VIEW (PORTABLE) Stat Exams 07/25/22 21:30 Taken CBC W DIFF Stat Lab 07/25/22 21:34 Completed CMP Stat Lab 07/25/22 21:34 Completed D-DIMER QUANTITATIVE Stat Lab 07/25/22 21:34 Completed Lactic Acid Stat Lab 07/25/22 21:29 Completed MAGNESIUM Stat Lab 07/25/22 21:34 Completed NT PRO BNPII Stat Lab 07/25/22 21:34 Completed TROPONIN Q4H Lab 07/25/22 21:34 Completed TROPONIN Q4H Lab 07/26/22 01:30 Ordered TROPONIN Q4H Lab 07/26/22 05:30 Ordered Respiratory Therapy Assessment DAILY RT 07/25/22 21:38 Completed Medication Summary Generic Name Dose Route Start Last Admin Trade Name Freq PRN Reason Stop Dose Admin Furosemide 20 mg 07/26/22 23:38 Furosemide 20 Mg/Vial IV 07/26/22 23:39 STAT ONE Sodium Chloride 1,000 mls @ 100 mls/hr 07/25/22 21:30 07/25/22 21:38 Sodium Chloride 0.9% 1000 Ml IV 08/24/22 21:29 100 mls/hr .Q10H KARISSA Administration Discontinued Medications Generic Name Dose Route Start Last Admin Trade Name Freq PRN Reason Stop Dose Admin Albuterol/Ipratropium 3 ml 07/25/22 21:29 07/25/22 21:35 Ipratropium/Albuterol Sulfate 3 Ml Ampul.Neb IH 07/25/22 21:30 3 ml STAT ONE Administration Albuterol/Ipratropium Confirm 07/25/22 21:32 Ipratropium/Albuterol Sulfate 3 Ml Ampul.Neb Administered 07/25/22 21:33 Dose 3 ml IH .STK-MED ONE Methylprednisolone Sodium 0 mg 07/25/22 21:29 07/25/22 21:40 Succinate 125 mg/ Sterile IV 07/25/22 21:30 125 mg Water 2 ml STAT ONE Administration Ceftriaxone Sodium/Dextrose 1 g in 50 mls @ 100 mls/hr 07/25/22 21:29 07/25/22 22:31 Rocephin 1 Gm-D5w 50 Ml Bag IV 07/25/22 21:58 Infused STAT STA Infusion Ceftriaxone Sodium/Dextrose Confirm 07/25/22 21:35 Rocephin 1 Gm-D5w 50 Ml Bag Administered 07/25/22 21:36 Dose 1 g in 50 mls @ ud IV .STK-MED ONE Methylprednisolone Sodium Succinate Confirm 07/25/22 21:34 Methylprednis Sod Succ 125 Mg/2 Ml Vial Administered 07/25/22 21:35 Dose 125 mg .ROUTE .STK-MED ONE Ropinirole HCl 1 mg 07/25/22 23:38 Ropinirole Hcl 2 Mg Tablet PO 07/25/22 23:39 STAT ONE Sterile Water Confirm 07/25/22 21:34 Water For Injection,Sterile 10 Ml Vial Administered 07/25/22 21:35 Dose 10 ml IJ .STK-MED ONE Lab/Rad Data: Laboratory Result Diagrams 07/25/22 21:34 07/25/22 21:34 Laboratory Results 07/25/22 07/25/22 07/25/22 Range/Units 21:55 21:34 21:34 WBC (4.0-10.5) x10^3/uL RBC (4.1-5.6) x10^6/uL Hgb (12.5-18.0) g/dL Hct (42-50) % MCV (78-100) fL MCH (26-32) pg MCHC (32-36) g/dL RDW (11.5-14.0) % Plt Count (150-450) x10^3/uL MPV (7.5-11.0) fL Gran % (36.0-66.0) % Immature Gran % (Auto) (0.00-0.4) % Nucleat RBC Rel Count (0.00-0.1) % Eos # (Auto) (0-0.5) x10^3/uL Immature Gran # (Auto) (0.00-0.03) x10^3u/L Absolute Lymphs (auto) (1.0-4.6) x10^3/uL Absolute Monos (auto) (0.0-1.3) x10^3/uL Absolute Nucleated RBC (0.00-0.01) x10^3u/L Lymphocytes % (24.0-44.0) % Monocytes % (0.0-12.0) % Eosinophils % (0.00-5.0) % Basophils % (0.0-0.4) % Absolute Granulocytes (1.4-6.9) x10^3/uL Basophils # (0-0.4) x10^3/uL D-Dimer (0.0-0.50) mg/L Sodium (137-145) mmol/L Potassium (3.5-5.1) mmol/L Chloride (98-107) mmol/L Carbon Dioxide (22-30) mmol/L Anion Gap (5-15) MEQ/L BUN (9-20) mg/dL Creatinine (0.66-1.25) mg/dL Estimated GFR ML/MIN Glucose (74-106) mg/dL Lactic Acid (0.4-2.0) Calcium (8.4-10.2) mg/dL Magnesium (1.6-2.3) mg/dL Total Bilirubin (0.2-1.3) mg/dL AST (17-59) U/L ALT (0-50) U/L Alkaline Phosphatase (38-126) U/L Troponin I < 0.012 (0.000-0.034) ng/mL NT-Pro-B Natriuret Pep 4510 (<300) pg/mL Serum Total Protein (6.3-8.2) g/dL Albumin (3.5-5.0) g/dL Influenza Type A Ag NEGATIVE (NEGATIVE) Influenza Type B Ag NEGATIVE (NEGATIVE) RSV (PCR) NEGATIVE (NEGATIVE) SARS-CoV-2 (PCR) NEGATIVE (NEGATIVE) 0607/25/22 07/25/22 Range/Units 21:34 21:34 21:34 WBC 8.4 (4.0-10.5) x10^3/uL RBC 4.42 (4.1-5.6) x10^6/uL Hgb 13.0 (12.5-18.0) g/dL Hct 40.7 L (42-50) % MCV 92.1 (78-100) fL MCH 29.4 (26-32) pg MCHC 31.9 L (32-36) g/dL RDW 13.4 (11.5-14.0) % Plt Count 252 (150-450) x10^3/uL MPV 9.9 (7.5-11.0) fL Gran % 63.1 (36.0-66.0) % Immature Gran % (Auto) 0.6 H (0.00-0.4) % Nucleat RBC Rel Count 0.0 (0.00-0.1) % Eos # (Auto) 0.16 (0-0.5) x10^3/uL Immature Gran # (Auto) 0.05 H (0.00-0.03) x10^3u/L Absolute Lymphs (auto) 1.83 (1.0-4.6) x10^3/uL Absolute Monos (auto) 1.00 (0.0-1.3) x10^3/uL Absolute Nucleated RBC 0.00 (0.00-0.01) x10^3u/L Lymphocytes % 21.9 L (24.0-44.0) % Monocytes % 12.0 (0.0-12.0) % Eosinophils % 1.9 (0.00-5.0) % Basophils % 0.5 (0.0-0.4) % Absolute Granulocytes 5.28 (1.4-6.9) x10^3/uL Basophils # 0.04 (0-0.4) x10^3/uL D-Dimer 0.22 (0.0-0.50) mg/L Sodium 134 L (137-145) mmol/L Potassium 3.7 (3.5-5.1) mmol/L Chloride 97 L (98-107) mmol/L Carbon Dioxide 27 (22-30) mmol/L Anion Gap 13.6 (5-15) MEQ/L BUN 39 H (9-20) mg/dL Creatinine 1.47 H (0.66-1.25) mg/dL Estimated GFR 49.9 ML/MIN Glucose 100 (74-106) mg/dL Lactic Acid (0.4-2.0) Calcium 8.8 (8.4-10.2) mg/dL Magnesium 2.2 (1.6-2.3) mg/dL Total Bilirubin 0.50 (0.2-1.3) mg/dL AST 51 (17-59) U/L ALT 26 (0-50) U/L Alkaline Phosphatase 76 (38-126) U/L Troponin I (0.000-0.034) ng/mL NT-Pro-B Natriuret Pep (<300) pg/mL Serum Total Protein 7.2 (6.3-8.2) g/dL Albumin 4.0 (3.5-5.0) g/dL Influenza Type A Ag (NEGATIVE) Influenza Type B Ag (NEGATIVE) RSV (PCR) (NEGATIVE) SARS-CoV-2 (PCR) (NEGATIVE) 07/25/22 Range/Units 21:29 WBC (4.0-10.5) x10^3/uL RBC (4.1-5.6) x10^6/uL Hgb (12.5-18.0) g/dL Hct (42-50) % MCV (78-100) fL MCH (26-32) pg MCHC (32-36) g/dL RDW (11.5-14.0) % Plt Count (150-450) x10^3/uL MPV (7.5-11.0) fL Gran % (36.0-66.0) % Immature Gran % (Auto) (0.00-0.4) % Nucleat RBC Rel Count (0.00-0.1) % Eos # (Auto) (0-0.5) x10^3/uL Immature Gran # (Auto) (0.00-0.03) x10^3u/L Absolute Lymphs (auto) (1.0-4.6) x10^3/uL Absolute Monos (auto) (0.0-1.3) x10^3/uL Absolute Nucleated RBC (0.00-0.01) x10^3u/L Lymphocytes % (24.0-44.0) % Monocytes % (0.0-12.0) % Eosinophils % (0.00-5.0) % Basophils % (0.0-0.4) % Absolute Granulocytes (1.4-6.9) x10^3/uL Basophils # (0-0.4) x10^3/uL D-Dimer (0.0-0.50) mg/L Sodium (137-145) mmol/L Potassium (3.5-5.1) mmol/L Chloride (98-107) mmol/L Carbon Dioxide (22-30) mmol/L Anion Gap (5-15) MEQ/L BUN (9-20) mg/dL Creatinine (0.66-1.25) mg/dL Estimated GFR ML/MIN Glucose (74-106) mg/dL Lactic Acid 1.0 (0.4-2.0) Calcium (8.4-10.2) mg/dL Magnesium (1.6-2.3) mg/dL Total Bilirubin (0.2-1.3) mg/dL AST (17-59) U/L ALT (0-50) U/L Alkaline Phosphatase (38-126) U/L Troponin I (0.000-0.034) ng/mL NT-Pro-B Natriuret Pep (<300) pg/mL Serum Total Protein (6.3-8.2) g/dL Albumin (3.5-5.0) g/dL Influenza Type A Ag (NEGATIVE) Influenza Type B Ag (NEGATIVE) RSV (PCR) (NEGATIVE) SARS-CoV-2 (PCR) (NEGATIVE) - Progress Progress: improved, re-examined Air Movement: good Progress Note: 07/25/22 23:49 discussed more with pt and family for meds for restless legs and for CHF and they agree to proceed and for consultation with hospitalist to consider admission. 07/25/22 23:[address] Weems - [place] in consultation and he agrees best to place pt in hosp in obs for diuresis and Tx CHF. Blood Culture(s) Obtained: No Antibiotics given: Yes Discussed with DrMarino: Other (Dr. Weems - Hospitalist) Will see patient in: hospital (observation) Counseled pt/family regarding: lab results, diagnosis, need for follow-up, rad results Medical Desision Making - Independent Historian Additional History obtained from: Family - Discussion of managment Care discussed with:: hospitalist Reviewed:: Test results, Need for additional workup Agreed on:: Treatment plan, need for follow-up, decision to admit, place in obs Will see patient: in hospital - Diagnostic Testing Diagnostic test were ordered, analyzed, and reviewed by me: Yes Radiological Interpretation: Interpreted by me, Reviewed by me - Risk of complications The pt has a mod risk of morbidity or mortality based on: Need for prescription drug management The pt has a high risk of morbidity or mortality based on: Decision regarding hospitilization or escalation of hosp level of care - Departure Departure Disposition: Observation Clinical Impression: COPD with exacerbation, CHF (congestive heart failure) Condition: Good Critical Care Time: No Referrals: YANIV HARO SWEATBAND SHAPER [Primary Care Provider] - Follow up/PCP as directed Instructions: Chronic Obstructive Pulmonary Disease, Heart Failure
[2022-07-25 21:52] LABS: ANION GAP 13.6 MEQ/L (5-15); BILIRUBIN,TOTAL 0.5 mg/dL (0.2-1.3); Calcium 8.8 mg/dL (8.4-10.2); Creatinine 1 1.47 mg/dL (0.66-1.25); EST GLOMERULAR FILTRATION RATE 49.9 ML/MIN; MAGNESIUM 2.2 mg/dL (1.6-2.3); Potassium 3.7 mmol/L (3.5-5.1); Total Protein 7.2 g/dL (6.3-8.2)
[2022-07-25 22:35] LABS: INFLUENZA A NEGATIVE (NEGATIVE); INFLUENZA B NEGATIVE (NEGATIVE); RESPIRATORY SYNCTIAL VIRUS NEGATIVE (NEGATIVE); SARS-CoV-2 Xpert Express NEGATIVE (NEGATIVE)
[2022-07-25] MEDS ORDERED: REQUIP 2MG TAB PO ONE (23:38)
[2022-07-25] MEDS ORDERED: Lasix 20 MG/2 ML ONE (23:39)
[2022-07-26] MEDS ORDERED: HUMULIN R SQ PRN (02:02)
[2022-07-26] MEDS ORDERED: DUONEB 0.5-3 MG/3 ml Neb IH SCH (03:00)
--- NOTE | 2022-07-26 03:31 | PCM.HP ---
History of Present Illness - Chief Complaint Chief Complaint: sob History of Present Illness: 72 yo wm with hx of COPD, CAD, PVD presents with sob for 5 days. Pt notes wheezing. Minimal cough. Denies worsening TERRENCE. Denies weight loss. BNP high on admit. Given lasix in ED. Started on nebs. - Review of Systems Constitutional: No Symptoms, Fever Eyes: No Symptoms Ears, Nose, & Throat: No Symptoms Respiratory: Wheezing Cardiac: No Edema, No Orthopnea, No PND Abdominal/Gastrointestinal: No Symptoms Genitourinary Symptoms: No Symptoms Musculoskeletal: No Symptoms Skin: No Symptoms Neurological: No Symptoms Psychological: No Symptoms Endocrine: No Symptoms Medications & Allergies Home Medications: Home Medication List Atorvastatin Calcium 40 mg PO HS 05/14/14 [History Confirmed 07/25/22] Furosemide 40 mg PO BID PRN PRN 05/14/14 [History Confirmed 07/25/22] Metoprolol Tartrate 25 mg [Lopressor 25MG Tab] 25 mg PO BID 05/14/14 [History Confirmed 07/25/22] Apixaban [Eliquis] 5 mg PO BID 02/20/19 [History Confirmed 07/25/22] Hydralazine HCl 50 mg PO TID 02/20/19 [History Confirmed 07/25/22] Ranolazine [Ranolazine ER] 500 mg PO BID 02/20/19 [History Confirmed 07/25/22] Fluticasone/Umeclidin/Vilanter [Trelegy Ellipta 100-62.5-25] 1 each IH DAILY 07/25/22 [History Confirmed 07/25/22] Allopurinol 100 mg [Zyloprim 100 mg] 100 mg PO DAILY 07/26/22 [History Confirmed 07/26/22] Aspirin 81 mg PO DAILY 07/26/22 [History Confirmed 07/26/22] Allergies/Adverse Reactions: Allergies Allergy/AdvReac Type Severity Reaction Status Date / Time No Known Drug Allergies Allergy Verified 07/26/22 02:08 - Past Medical History Past Medical History: Yes Neurological History: No Pertinent History ENT History: Cataracts Cardiac History: Hypertension, Myocardial Infarction ([place]) Respiratory History: CHF, COPD Endocrine Medical History: No Pertinent History Musculoskelatal History: Arthritis GI Medical History: Hemorrhoids History: Other Pyscho-Social History: No Pertinent History Male Reproductive Disorders: No Pertinent History Comment: Kidney(?) Stent. Cardiac Stent. - Past Surgical History Past Surgical History: Yes Neuro Surgical History: No Pertinent History Cardiac History: Cardiac Stent Respiratory Surgery: No Pertinent History GI Surgical History: Appendectomy Genitourinary Surgical Hx: Kidney Surgery Musculskeletal Surgical Hx: No Pertinent History Male Surgical History: No Pertinent History Other Surgical History: DOES HAVE ONE HEART STENT 03/2014, kidney stent 2014 - Social History Smoking Status: Former smoker Exposure to second hand smoke: No Alcohol: None Drug Use: marijuana - Physical Exam Vital Signs: Vital Signs - 24 hr Temp Pulse Resp BP BP Pulse Ox 07/26/22 01:00 132/72 92 L 07/26/22 00:31 58 L 20 127/81 93 L 07/26/22 00:01 96 07/26/22 00:00 61 19 154/104 127/81 96 07/25/22 23:31 58 L 16 133/80 93 L 07/25/22 23:01 59 L 21 138/74 92 L 07/25/22 23:00 59 L 18 138/74 93 L 07/25/22 22:30 66 18 160/86 92 L 07/25/22 22:04 52 L 16 160/86 93 L 07/25/22 22:01 57 L 20 147/67 94 L 07/25/22 21:39 56 L 19 96 07/25/22 21:32 94 L 07/25/22 21:31 56 L 17 147/89 93 L 07/25/22 21:15 97.0 F 55 L 15 159/79 96 07/25/22 21:09 54 L 16 159/79 99 General Appearance: no apparent distress Neurologic Exam: alert, oriented x 3 Eye Exam: PERRL/EOMI, eyes nml inspection Ears, Nose, Throat Exam: normal ENT inspection Neck Exam: normal inspection Respiratory Exam: wheezing Cardiovascular Exam: regular rate/rhythm, normal heart sounds Gastrointestinal/Abdomen Exam: soft, normal bowel sounds, tenderness Extremity Exam: normal inspection, normal range of motion Results - Labs Lab/Micro Results: Lab Results-Last 24 Hours 07/25/22 07/25/22 07/25/22 Range/Units 21:29 21:34 21:34 WBC 8.4 (4.0-10.5) x10^3/uL RBC 4.42 (4.1-5.6) x10^6/uL Hgb 13.0 (12.5-18.0) g/dL Hct 40.7 L (42-50) % MCV 92.1 (78-100) fL MCH 29.4 (26-32) pg MCHC 31.9 L (32-36) g/dL RDW 13.4 (11.5-14.0) % Plt Count 252 (150-450) x10^3/uL MPV 9.9 (7.5-11.0) fL Gran % 63.1 (36.0-66.0) % Immature Gran % (Auto) 0.6 H (0.00-0.4) % Nucleat RBC Rel Count 0.0 (0.00-0.1) % Eos # (Auto) 0.16 (0-0.5) x10^3/uL Immature Gran # (Auto) 0.05 H (0.00-0.03) x10^3u/L Absolute Lymphs (auto) 1.83 (1.0-4.6) x10^3/uL Absolute Monos (auto) 1.00 (0.0-1.3) x10^3/uL Absolute Nucleated RBC 0.00 (0.00-0.01) x10^3u/L Lymphocytes % 21.9 L (24.0-44.0) % Monocytes % 12.0 (0.0-12.0) % Eosinophils % 1.9 (0.00-5.0) % Basophils % 0.5 (0.0-0.4) % Absolute Granulocytes 5.28 (1.4-6.9) x10^3/uL Basophils # 0.04 (0-0.4) x10^3/uL D-Dimer (0.0-0.50) mg/L Sodium 134 L (137-145) mmol/L Potassium 3.7 (3.5-5.1) mmol/L Chloride 97 L (98-107) mmol/L Carbon Dioxide 27 (22-30) mmol/L Anion Gap 13.6 (5-15) MEQ/L BUN 39 H (9-20) mg/dL Creatinine 1.47 H (0.66-1.25) mg/dL Estimated GFR 49.9 ML/MIN Glucose 100 (74-106) mg/dL Lactic Acid 1.0 (0.4-2.0) Calcium 8.8 (8.4-10.2) mg/dL Magnesium 2.2 (1.6-2.3) mg/dL Total Bilirubin 0.50 (0.2-1.3) mg/dL AST 51 (17-59) U/L ALT 26 (0-50) U/L Alkaline Phosphatase 76 (38-126) U/L Troponin I (0.000-0.034) ng/mL NT-Pro-B Natriuret Pep (<300) pg/mL Serum Total Protein 7.2 (6.3-8.2) g/dL Albumin 4.0 (3.5-5.0) g/dL Influenza Type A Ag (NEGATIVE) Influenza Type B Ag (NEGATIVE) RSV (PCR) (NEGATIVE) SARS-CoV-2 (PCR) (NEGATIVE) 07/25/22 07/25/22 07/25/22 Range/Units 21:34 21:34 21:34 WBC (4.0-10.5) x10^3/uL RBC (4.1-5.6) x10^6/uL Hgb (12.5-18.0) g/dL Hct (42-50) % MCV (78-100) fL MCH (26-32) pg MCHC (32-36) g/dL RDW (11.5-14.0) % Plt Count (150-450) x10^3/uL MPV (7.5-11.0) fL Gran % (36.0-66.0) % Immature Gran % (Auto) (0.00-0.4) % Nucleat RBC Rel Count (0.00-0.1) % Eos # (Auto) (0-0.5) x10^3/uL Immature Gran # (Auto) (0.00-0.03) x10^3u/L Absolute Lymphs (auto) (1.0-4.6) x10^3/uL Absolute Monos (auto) (0.0-1.3) x10^3/uL Absolute Nucleated RBC (0.00-0.01) x10^3u/L Lymphocytes % (24.0-44.0) % Monocytes % (0.0-12.0) % Eosinophils % (0.00-5.0) % Basophils % (0.0-0.4) % Absolute Granulocytes (1.4-6.9) x10^3/uL Basophils # (0-0.4) x10^3/uL D-Dimer 0.22 (0.0-0.50) mg/L Sodium (137-145) mmol/L Potassium (3.5-5.1) mmol/L Chloride (98-107) mmol/L Carbon Dioxide (22-30) mmol/L Anion Gap (5-15) MEQ/L BUN (9-20) mg/dL Creatinine (0.66-1.25) mg/dL Estimated GFR ML/MIN Glucose (74-106) mg/dL Lactic Acid (0.4-2.0) Calcium (8.4-10.2) mg/dL Magnesium (1.6-2.3) mg/dL Total Bilirubin (0.2-1.3) mg/dL AST (17-59) U/L ALT (0-50) U/L Alkaline Phosphatase (38-126) U/L Troponin I < 0.012 (0.000-0.034) ng/mL NT-Pro-B Natriuret Pep 4510 (<300) pg/mL Serum Total Protein (6.3-8.2) g/dL Albumin (3.5-5.0) g/dL Influenza Type A Ag (NEGATIVE) Influenza Type B Ag (NEGATIVE) RSV (PCR) (NEGATIVE) SARS-CoV-2 (PCR) (NEGATIVE) 07/25/22 07/26/22 Range/Units 21:55 02:33 WBC (4.0-10.5) x10^3/uL RBC (4.1-5.6) x10^6/uL Hgb (12.5-18.0) g/dL Hct (42-50) % MCV (78-100) fL MCH (26-32) pg MCHC (32-36) g/dL RDW (11.5-14.0) % Plt Count (150-450) x10^3/uL MPV (7.5-11.0) fL Gran % (36.0-66.0) % Immature Gran % (Auto) (0.00-0.4) % Nucleat RBC Rel Count (0.00-0.1) % Eos # (Auto) (0-0.5) x10^3/uL Immature Gran # (Auto) (0.00-0.03) x10^3u/L Absolute Lymphs (auto) (1.0-4.6) x10^3/uL Absolute Monos (auto) (0.0-1.3) x10^3/uL Absolute Nucleated RBC (0.00-0.01) x10^3u/L Lymphocytes % (24.0-44.0) % Monocytes % (0.0-12.0) % Eosinophils % (0.00-5.0) % Basophils % (0.0-0.4) % Absolute Granulocytes (1.4-6.9) x10^3/uL Basophils # (0-0.4) x10^3/uL D-Dimer (0.0-0.50) mg/L Sodium (137-145) mmol/L Potassium (3.5-5.1) mmol/L Chloride (98-107) mmol/L Carbon Dioxide (22-30) mmol/L Anion Gap (5-15) MEQ/L BUN (9-20) mg/dL Creatinine (0.66-1.25) mg/dL Estimated GFR ML/MIN Glucose (74-106) mg/dL Lactic Acid (0.4-2.0) Calcium (8.4-10.2) mg/dL Magnesium (1.6-2.3) mg/dL Total Bilirubin (0.2-1.3) mg/dL AST (17-59) U/L ALT (0-50) U/L Alkaline Phosphatase (38-126) U/L Troponin I < 0.012 (0.000-0.034) ng/mL NT-Pro-B Natriuret Pep (<300) pg/mL Serum Total Protein (6.3-8.2) g/dL Albumin (3.5-5.0) g/dL Influenza Type A Ag NEGATIVE (NEGATIVE) Influenza Type B Ag NEGATIVE (NEGATIVE) RSV (PCR) NEGATIVE (NEGATIVE) SARS-CoV-2 (PCR) NEGATIVE (NEGATIVE) - Radiology Impressions Radiology Exams & Impressions: Radiology Procedures Category Date Time Status CHEST 1 VIEW (PORTABLE) Stat Exams 07/25/22 21:30 Taken - Other Procedures and Tests Respiratory Therapy 07/25/22 21:38 Respiratory Therapy Assessment DAILY 07/26/22 02:02 Oxygen NASAL CANNULA 2 lpm Respiratory Therapy Consult ROUTINE Assessment/Plan (1) CHF (congestive heart failure) Current Visit: Yes Status: Acute Assessment & Plan: 1. COPD exac: continue nebs and steroids. 2. CHF exac: BNP very high. Continue lasix. CXR clear. 3. CKD: Cr stable 4. ? Afib: on AC. 5. FEN: oral diet 6. PX: DOAC Juan Weems MD entire encounter done via telemedicine Code(s): I50.9 - HEART FAILURE, UNSPECIFIED Telemedicine Encounter - Telemedicine Encounter Telemedicine Encounter: The entirety of this encounter was performed via Telemedicine"
[2022-07-26] MEDS ORDERED: solu-MEDROL ONE ×2 (04:52→05:15)
[2022-07-26] MEDS ORDERED: Sterile H2O 10 ml IJ ONE (04:52)
[2022-07-26 05:58] LABS: Hematocrit 37.5 % (42-50); Hemoglobin 11.9 g/dL (12.5-18.0); Mean Cell Volume 92.4 fL (78-100); Mean Corpuscular Hemoglobin 29.3 pg (26-32); Mean Corpuscular Hgb Concent. 31.7 g/dL (32-36); Mean Platelet Volume 10.3 fL (7.5-11.0); Platelet Count 230 x10^3/uL (150-450); Red Blood Count 4.06 x10^6/uL (4.1-5.6); Red Cell Distribution Width 13.7 % (11.5-14.0); White Blood Count 5.1 x10^3/uL (4.0-10.5)
[2022-07-26] MEDS ORDERED: solu-MEDROL 40 MG, Sterile H2O 10 ml 2 ML IV SCH ×2 (06:00)
[2022-07-26 06:30] LABS: ANION GAP 15.6 MEQ/L (5-15); Calcium 8.3 mg/dL (8.4-10.2); Creatinine 1 1.54 mg/dL (0.66-1.25); EST GLOMERULAR FILTRATION RATE 47.3 ML/MIN; Potassium 4.1 mmol/L (3.5-5.1)
[2022-07-26] MEDS: DUONEB 0.5-3 MG/3 ml Neb IH SCH ×4 (07:14→18:36)
[2022-07-26] MEDS: Advair Hfa 115/21 Common canister IH SCH ×2 (07:21→18:46)
--- NOTE | 2022-07-26 08:10 | XRAY ---
Indication: Short of breath. Comparison: February 19, 2019 Portable atypical lordotic chest again hyperinflated with new left lower lobe infiltrate/atelectasis without consolidation/large effusion. Remaining heart and right lung unremarkable. Bony thorax intact. Comment: Left lung finding not reported by interpreting ER clinician. Telephone report was given to Dr. Harley at 0805 hrs. on July 26, 2022.
[2022-07-26] MEDS: Lasix 40 MG/4 ML IV SCH ×2 (10:11→16:56)
[2022-07-26] MEDS: Lopressor 25MG Tab PO SCH ×2 (10:11→22:03)
[2022-07-26] MEDS: ROCEPHIN 1 Gm-D5w 50 ml Bag** 1 G/50 ML IVPB IV SCH ×2 (10:11→22:04)
[2022-07-26] MEDS: ELIQUIS 2.5 MG TABLET PO SCH ×2 (10:11→22:03)
[2022-07-26] MEDS: solu-MEDROL 40 MG, Sterile H2O 10 ml 2 ML IV SCH ×4 (13:44→22:04)
[2022-07-26] MEDS: TYLENOL 325 MG PO PRN ×2 (16:23→22:46)
[2022-07-26] MEDS ORDERED: PROVENTIL 2.5 MG/3 ML NEB IH PRN (16:53)
[2022-07-26] MEDS: ZYLOPRIM 100 MG PO SCH (20:36)
[2022-07-26] MEDS: Apresoline 25 MG TABLET PO SCH ×2 (20:36→23:18)
[2022-07-26] MEDS: ECOTRIN 81 MG PO SCH (20:37)
[2022-07-26] MEDS: Ranexa 500 MG PO SCH ×2 (20:37→23:19)
[2022-07-26] MEDS ORDERED: LIPITOR 40MG PO SCH (22:00)
[2022-07-26] MEDS: ZOCOR 20MG PO SCH (22:03)
[2022-07-26] MEDS: REQUIP 2MG TAB PO SCH (22:03)
[2022-07-26] MEDS ORDERED: Lasix 20 MG/2 ML IV ONE (23:38)
[2022-07-27] MEDS: DUONEB 0.5-3 MG/3 ml Neb IH SCH ×4 (05:29→18:55)
[2022-07-27] MEDS: solu-MEDROL 40 MG, Sterile H2O 10 ml 2 ML IV SCH ×6 (05:34→21:21)
[2022-07-27] MEDS: Advair Hfa 115/21 Common canister IH SCH ×2 (05:38→18:55)
[2022-07-27] MEDS ORDERED: MEDICATION INTERVENTION MC SCH (07:30)
[2022-07-27] MEDS: Apresoline 25 MG TABLET PO SCH ×3 (08:03→21:20)
[2022-07-27] MEDS: Lasix 40 MG/4 ML IV SCH ×2 (08:04→17:18)
[2022-07-27] MEDS: ECOTRIN 81 MG PO SCH (08:04)
[2022-07-27] MEDS: ZYLOPRIM 100 MG PO SCH (08:04)
[2022-07-27] MEDS: Lopressor 25MG Tab PO SCH ×2 (08:04→21:20)
[2022-07-27] MEDS: ELIQUIS 2.5 MG TABLET PO SCH ×2 (08:04→21:20)
[2022-07-27] MEDS: Ranexa 500 MG PO SCH ×2 (08:04→21:23)
[2022-07-27] MEDS ORDERED: NON-FORMULARY ITEM (Fluticasone/Umeclidin/Vilanter [Trelegy Ellipta 100-62.5-25] 1 EACH Bl IH SCH (10:00)
[2022-07-27] MEDS: Mucinex 600MG ER Tabs PO SCH ×2 (11:08→21:20)
--- NOTE | 2022-07-27 18:06 | PCM.NOTE ---
Date and Time: 07/27/22 1800 Subjective Assessment: Dyspnea and cough slightly improved but persistent. The entirety of this encounter was performed via telemedicine. The patient consented to this telemedicine encounter. 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, normal mood/affect, nml cerebellar function Skin Exam: normal color Eye Exam: PERRL, EOMI, eyes nml inspection Ears, Nose, Throat Exam: normal ENT inspection Neck Exam: normal inspection, non-tender, full range of motion Respiratory Exam: diminished breath sounds, prolonged expirations, wheezing Cardiovascular Exam: regular rate/rhythm Gastrointestinal/Abdomen Exam: soft, normal bowel sounds Extremity Exam: normal inspection Back Exam: normal inspection OBJECTIVE DATA Vital Signs: Vital Signs - 24 hr Temp Pulse Resp BP Pulse Ox 07/27/22 15:57 98.0 F 72 16 133/62 98 07/27/22 15:04 67 16 92 L 07/27/22 11:47 97.9 F 65 16 132/63 100 07/27/22 09:48 66 18 100 07/27/22 07:07 97.7 F 89 16 124/59 93 L 07/27/22 05:29 61 18 94 L 07/27/22 04:36 97.3 F 68 22 133/58 93 L 07/26/22 23:51 97.6 F 73 22 142/65 96 07/26/22 20:00 97.5 F 67 18 136/63 94 L 07/26/22 18:36 70 16 93 L Pain Assessment - Last Documented Pain Intensity 3 Pain Scale Used 0-10 Pain Scale Intake and Output: Intake & Output 07/25/22 07/26/22 07/27/22 07/28/22 11:59 11:59 11:59 11:59 Intake Total 200 1160 Output Total 450 2150 Balance -250 -990 Weight 65.1 kg 65.3 kg Radiology Exams: Radiology Procedures Category Date Time Status CHEST 1 VIEW (PORTABLE) Stat Exams 07/25/22 21:30 Completed Assessment/Plan (1) COPD with exacerbation Current Visit: Yes Status: Acute Assessment & Plan: Continue current regimen. Still has marked diffuse wheezing on exam, so requires further therapy. Will monitor response. Code(s): J44.1 - CHRONIC OBSTRUCTIVE PULMONARY DISEASE W (ACUTE) EXACERBATION (2) Dyspnea Current Visit: Yes Status: Acute Assessment & Plan: Improving slowly Code(s): R06.00 - DYSPNEA, UNSPECIFIED (3) Wheezing Current Visit: Yes Status: Acute Assessment & Plan: Bronchodilators. Monitor exam. Code(s): R06.2 - WHEEZING (4) CHF (congestive heart failure) Current Visit: Yes Status: Acute Assessment & Plan: Monitor creatinine with diuresis Code(s): I50.9 - HEART FAILURE, UNSPECIFIED
[2022-07-27] MEDS: ZOCOR 20MG PO SCH (21:20)
[2022-07-27] MEDS: REQUIP 2MG TAB PO SCH (21:21)
[2022-07-27] MEDS: ROCEPHIN 1 Gm-D5w 50 ml Bag** 1 G/50 ML IVPB IV SCH (21:21)
[2022-07-28 05:30] LABS: ANION GAP 16.1 MEQ/L (5-15); Calcium 8.7 mg/dL (8.4-10.2); Creatinine 1 1.83 mg/dL (0.66-1.25); EST GLOMERULAR FILTRATION RATE 38.8 ML/MIN; Potassium 3.8 mmol/L (3.5-5.1)
[2022-07-28] MEDS: solu-MEDROL 40 MG, Sterile H2O 10 ml 2 ML IV SCH ×6 (07:08→22:15)
[2022-07-28] MEDS: DUONEB 0.5-3 MG/3 ml Neb IH SCH ×4 (07:15→19:04)
[2022-07-28] MEDS: Advair Hfa 115/21 Common canister IH SCH ×2 (07:17→19:05)
[2022-07-28] MEDS: Lasix 40 MG/4 ML IV SCH ×2 (09:33→17:09)
[2022-07-28] MEDS: ELIQUIS 2.5 MG TABLET PO SCH ×2 (09:33→22:10)
[2022-07-28] MEDS: ECOTRIN 81 MG PO SCH (09:34)
[2022-07-28] MEDS: Ranexa 500 MG PO SCH ×2 (09:34→22:10)
[2022-07-28] MEDS: Lopressor 25MG Tab PO SCH ×2 (09:34→22:10)
[2022-07-28] MEDS: ZYLOPRIM 100 MG PO SCH (09:34)
[2022-07-28] MEDS: Mucinex 600MG ER Tabs PO SCH ×2 (09:34→22:10)
[2022-07-28] MEDS: Apresoline 25 MG TABLET PO SCH ×3 (09:34→22:10)
[2022-07-28] MEDS ORDERED: Zanaflex 4 MG PO PRN (10:16)
--- NOTE | 2022-07-28 16:38 | PCM.NOTE ---
Date and Time: 07/28/22 1633 Subjective Assessment: Dyspnea and cough continues to improve but is still persistent. The entirety of this encounter was performed via telemedicine. The patient consented to this telemedicine encounter. 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, normal mood/affect, nml cerebellar function Skin Exam: normal color Eye Exam: PERRL Ears, Nose, Throat Exam: normal ENT inspection Neck Exam: normal inspection, non-tender, supple, full range of motion Respiratory Exam: wheezing (persistent diffuse bilateral wheezing) Cardiovascular Exam: regular rate/rhythm, normal heart sounds Gastrointestinal/Abdomen Exam: soft, normal bowel sounds Extremity Exam: normal inspection, normal range of motion OBJECTIVE DATA Vital Signs: Vital Signs - 24 hr Temp Pulse Resp BP Pulse Ox 07/28/22 16:16 98 F 76 21 165/76 96 07/28/22 15:45 73 16 95 07/28/22 13:00 98 F 69 21 163/77 95 07/28/22 11:40 70 20 100 07/28/22 08:56 74 20 96 07/28/22 07:58 97.9 F 94 H 19 104/55 94 L 07/28/22 05:00 97.3 F 67 18 151/66 100 07/27/22 23:41 97.5 F 68 16 138/63 95 07/27/22 19:24 97.2 F 75 16 146/66 92 L 07/27/22 19:17 74 18 93 L Pain Assessment - Last Documented Pain Intensity 5 Pain Scale Used 0-10 Pain Scale Intake and Output: Intake & Output 07/26/22 07/27/22 07/28/22 07/29/22 11:59 11:59 11:59 11:59 Intake Total 200 1160 520 Output Total 450 2150 1500 Balance -250 -240 -018 Weight 65.1 kg 65.3 kg 65.3 kg Lab Results: Lab Results-Last 24 Hours 07/28/22 Range/Units 04:12 Sodium 133 L (137-145) mmol/L Potassium 3.8 (3.5-5.1) mmol/L Chloride 93 L (98-107) mmol/L Carbon Dioxide 28 (22-30) mmol/L Anion Gap 16.1 H (5-15) MEQ/L BUN 58 H (9-20) mg/dL Creatinine 1.83 H (0.66-1.25) mg/dL Estimated GFR 38.8 ML/MIN Glucose 142 H (74-106) mg/dL Calcium 8.7 (8.4-10.2) mg/dL Multi-Disciplinary Progress Notes: Multi-Disciplinary Progress Notes 07/28/22 12:49 Case Management Note by Aarti Garcia S/W PATIENT- HE CONTINUES TO DENY ANY NEW NEEDS AT TIME OF DC. HE PLANS TO RETURN HOME TO HIS PLF AT TIME OF DC Initialized on 07/28/22 12:49 - END OF NOTE Assessment/Plan (1) COPD with exacerbation Current Visit: Yes Status: Acute Assessment & Plan: Continue current regimen. Evaluation by Dr. Mcdermott requested. Will continue to monitor Code(s): J44.1 - CHRONIC OBSTRUCTIVE PULMONARY DISEASE W (ACUTE) EXACERBATION (2) Dyspnea Current Visit: Yes Status: Acute Assessment & Plan: Continue current regimen. Monitor oxygen requirements. Code(s): R06.00 - DYSPNEA, UNSPECIFIED (3) Wheezing Current Visit: Yes Status: Acute Assessment & Plan: Nebulizers and steroids Code(s): R06.2 - WHEEZING (4) CHF (congestive heart failure) Current Visit: Yes Status: Acute Assessment & Plan: Monitor volume status and renal function with IV Lasix administration. Code(s): I50.9 - HEART FAILURE, UNSPECIFIED
[2022-07-28] MEDS: ROCEPHIN 1 Gm-D5w 50 ml Bag** 1 G/50 ML IVPB IV SCH (22:06)
[2022-07-28] MEDS: REQUIP 2MG TAB PO SCH (22:10)
[2022-07-28] MEDS: ZOCOR 20MG PO SCH (22:11)
[2022-07-29] MEDS: solu-MEDROL 40 MG, Sterile H2O 10 ml 2 ML IV SCH ×6 (05:33→21:24)
[2022-07-29 05:55] LABS: Calcium 8.9 mg/dL (8.4-10.2); Creatinine 1 1.74 mg/dL (0.66-1.25); EST GLOMERULAR FILTRATION RATE 41.1 ML/MIN
[2022-07-29] MEDS: Advair Hfa 115/21 Common canister IH SCH (07:02)
[2022-07-29] MEDS: DUONEB 0.5-3 MG/3 ml Neb IH SCH ×4 (07:02→18:10)
[2022-07-29] MEDS: Lasix 40 MG/4 ML IV SCH ×2 (10:41→18:20)
[2022-07-29] MEDS: Ranexa 500 MG PO SCH ×2 (10:44→21:22)
[2022-07-29] MEDS: Mucinex 600MG ER Tabs PO SCH ×2 (10:45→21:22)
[2022-07-29] MEDS: ZYLOPRIM 100 MG PO SCH (10:45)
[2022-07-29] MEDS: Lopressor 25MG Tab PO SCH ×2 (10:45→21:22)
[2022-07-29] MEDS: ECOTRIN 81 MG PO SCH (10:45)
[2022-07-29] MEDS: Apresoline 25 MG TABLET PO SCH ×3 (10:46→21:22)
[2022-07-29] MEDS: ELIQUIS 2.5 MG TABLET PO SCH ×2 (10:47→21:21)
--- NOTE | 2022-07-29 16:01 | PCM.NOTE ---
Date and Time: 07/29/22 1556 Subjective Assessment: Dyspnea and cough is persistent, but again has slowly improved today. Today the patient was upset about the diet order, which has been addressed through further discussion. The entirety of this encounter was performed via telemedicine. The patient consented to this telemedicine encounter. 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, normal mood/affect, nml cerebellar function Skin Exam: normal color Eye Exam: PERRL, EOMI, eyes nml inspection Ears, Nose, Throat Exam: normal ENT inspection Neck Exam: normal inspection, non-tender Respiratory Exam: wheezing Cardiovascular Exam: regular rate/rhythm, normal heart sounds Gastrointestinal/Abdomen Exam: soft, normal bowel sounds Extremity Exam: pedal edema Back Exam: normal inspection OBJECTIVE DATA Vital Signs: Vital Signs - 24 hr Temp Pulse Resp BP Pulse Ox 07/29/22 15:20 76 20 91 L 07/29/22 11:51 98.3 F 71 18 189/74 91 L 07/29/22 11:42 67 18 93 L 07/29/22 07:09 98.5 F 59 L 18 137/62 91 L 07/29/22 07:04 63 18 94 L 07/29/22 04:00 97.7 F 66 20 130/63 93 L 07/29/22 00:00 97.5 F 68 18 140/65 95 07/28/22 20:00 97.6 F 95 H 24 150/66 96 07/28/22 19:05 66 18 100 07/28/22 16:16 98 F 76 21 165/76 96 Pain Assessment - Last Documented Pain Intensity 5 Pain Scale Used 0-10 Pain Scale Intake and Output: Intake & Output 07/27/22 07/28/22 07/29/22 07/30/22 11:59 11:59 11:59 11:59 Intake Total 1160 520 518 Output Total 2150 1500 1500 Balance -990 -980 -982 Weight 65.3 kg 65.3 kg 65.8 kg Lab Results: Lab Results-Last 24 Hours 07/29/22 Range/Units 04:52 Sodium 133 L (137-145) mmol/L Potassium 4.0 (3.5-5.1) mmol/L Chloride 92 L (98-107) mmol/L Carbon Dioxide 29 (22-30) mmol/L Anion Gap 16.0 H (5-15) MEQ/L BUN 63 H (9-20) mg/dL Creatinine 1.74 H (0.66-1.25) mg/dL Estimated GFR 41.1 ML/MIN Glucose 139 H (74-106) mg/dL Calcium 8.9 (8.4-10.2) mg/dL NT-Pro-B Natriuret Pep 2170 (<300) pg/mL Multi-Disciplinary Progress Notes: Multi-Disciplinary Progress Notes 07/29/22 09:30 (created 07/29/22 14:01) Case Management Note by Aarti Garcia ATTEMPTED TO S/W PATIENT ABOUT NEEDS AT DC- PATIENT IMMEDIATELY STARTED YELLING AT THIS OYSTER PICKER ABOUT HIS DIET. I CALLED DIETARY AND TRIED TO EXPLAIN DIET AND RULES PATIENT CONTINUED TO BE ANGRY SHOUTING AT THIS NURSE, I EXPLAINED I CAN S/W NURSE ABOUT GETTING DIET ORDER CHANGED- PATIENT JUST KEPT SAYING " FORGET IT FORGET IT" AND MOTIONING FOR THIS CASE MANGER TO LEAVE BEDSIDE Initialized on 07/29/22 14:01 - END OF NOTE Assessment/Plan (1) COPD with exacerbation Current Visit: Yes Status: Acute Assessment & Plan: Continues to improve. Dr. Mcdermott ([facility]) will be doing rounds this evening to evaluate the patient and offer further recommendations. Code(s): J44.1 - CHRONIC OBSTRUCTIVE PULMONARY DISEASE W (ACUTE) EXACERBATION (2) Dyspnea Current Visit: Yes Status: Acute Assessment & Plan: Improving with current regimen. Code(s): R06.00 - DYSPNEA, UNSPECIFIED (3) Wheezing Current Visit: Yes Status: Acute Assessment & Plan: Improvement. Acute broncospasm is improving with evidence of improved air flow on auscultation. Code(s): R06.2 - WHEEZING (4) CHF (congestive heart failure) Current Visit: Yes Status: Acute Assessment & Plan: Diuresing. Continue to monitor fluid status and renal function. Code(s): I50.9 - HEART FAILURE, UNSPECIFIED
[2022-07-29] MEDS: REQUIP 2MG TAB PO SCH (21:22)
[2022-07-29] MEDS: ZOCOR 20MG PO SCH (21:22)
[2022-07-29] MEDS: ROCEPHIN 1 Gm-D5w 50 ml Bag** 1 G/50 ML IVPB IV SCH (21:31)
--- NOTE | 2022-07-29 22:21 | XRAY ---
CLINICAL HISTORY:COPD; COMPARISON:CT dated 01/22/2022; TECHNIQUES:Contiguous axial CT images of the chest were acquired without the administration of intravenous contrast. Coronal and sagittal reconstructions were also obtained; FINDINGS: Extensive centrilobular emphysematous changes are seen in bilateral lungs, predominant in upper lobes causing architectural distortion. A 8.7 mm soft tissue density nodule is seen in the posterior basal segment of the left lower lobe. Mild fibrotic interstitial thickening is seen in bilateral perihilar regions. No free or encysted pleural effusion. Heart size is normal, and there is no pericardial effusion. No pathologically enlarged mediastinal, hilar, or axillary lymph node is identified. The thoracic spine shows degenerative changes. There is no definite mass lesion in the chest wall. Scanned upper abdomen shows multiple bilateral renal cysts, largest measuring 10 x 8 cm on left side, displacing the left kidney anteromedially. IMPRESSION: 1. 8.7 mm soft tissue density nodule in the left lower lobe, L-RADS - 4B. 2. Extensive COPD. 3. Mild fibrotic interstitial thickening in bilateral perihilar regions. 4. No significant interval changes seen since the previous study dated103/25/2021. Electronically Signed by: Mari Ba MD. (07/29/2022 21:16:48 [employer])
[2022-07-30 04:44] VITALS: O2SAT 96
[2022-07-30 04:59] LABS: Creatinine 1 1.73 mg/dL (0.66-1.25); EST GLOMERULAR FILTRATION RATE 41.4 ML/MIN; Potassium 3.9 mmol/L (3.5-5.1)
[2022-07-30] MEDS: solu-MEDROL 40 MG, Sterile H2O 10 ml 2 ML IV SCH ×2 (05:42)
[2022-07-30] MEDS: DUONEB 0.5-3 MG/3 ml Neb IH SCH (06:37)
[2022-07-30 06:42] VITALS: PULSE 72
[2022-07-30 07:49] VITALS: BP 178/101
--- NOTE | 2022-07-30 08:53 | CONS ---
CONSULT DATE: 07/29/2022 HISTORY: Shar Rockwell is a 72-year-old male, known to me, who has been hospitalized with complaints of cough, shortness of breath and wheezing. The patient is being treated with IV antibiotic and steroids. He does appear somewhat aggravated based on dietary restrictions since admission. The patient does report loss of voice possibly from use of inhaled steroids. He also has lost some weight. PAST MEDICAL HISTORY: Positive for history of chronic obstructive pulmonary disease. Coronary artery disease. Pulmonary nodule which has been followed in outpatient with stability. Restless leg syndrome. Anxiety. PAST SURGICAL HISTORY: No recent surgery. PERSONAL AND SOCIAL HISTORY: The patient has been a smoker. MEDICATIONS: Medications are reviewed. ALLERGIES: NKDA. PHYSICAL EXAMINATION: This is an elderly male who appears mildly aggravated. Vital signs noted. HEENT: Normocephalic. Oral exam unremarkable. CVS: First and second heart sounds are normal, regular, rhythmic. RESPIRATORY: Shows increase in AP diameter. Breath sounds are diminished, bilateral rhonchi are heard. ABDOMEN: Soft. EXTREMITIES: No significant edema is noted. LABORATORY DATA AND TESTS: Labs were reviewed. White blood cell count 8.4, hemoglobin 13, hematocrit 40, PLT count 252,000. BUN 39, creatinine 1.47. BNP 45. Influenza A/B, respiratory syncytial virus and COVID tests are negative. Chest x-ray on 07/25/2022 reviewed. ASSESSMENT: This is a 72-year old male admitted with: 1) Chronic obstructive pulmonary disease with acute exacerbation. 2) Acute bronchitis. 3) Hoarseness likely from use of inhaled steroids. 4) Pulmonary left lower lobe, stable. 5) Left-sided chest wall swelling, etiology? 6) History of coronary artery disease. 7) Hypertension. 8) Anxiety. RECOMMENDATIONS: 1) I agree with the present treatment, advised steroid taper. 2) Advised patient to order regular diet per his request. 3) I will obtain CT chest without contrast to assess for chest wall findings. 4) Further recommendations awaiting clinical improvement. Discussed with the patient as well as family members. Thank you for allowing me to participate in the care of your patient.
--- NOTE | 2022-07-30 11:17 | PCM.DS ---
Discharge Summary Date of Admission: 07/28/22 10:15 Date of Discharge: 07/30/22 Admitting Physician: JOSE BOATENG MD Consults: Consults on Case 07/28/22 10:15 Consult Pulmonology ROUTINE Primary Care Provider: YANIV HARO Allergies Allergies No Known Drug Allergies Allergy (Verified 07/26/22 02:08) Hospital Summary - Hospital Course Hospital Course: Evaluated by Dr. Rayo, who concurred with discharge planning. Clinically improved. Will discharge with oral antibiotics and steroids. Advised to take home prn Lasix daily for a week, and then switch back to prn. The patient was seen and examined via telemedicine. The entirety of this encounter was performed via telemedicine. The patient consented to this telemedicine encounter. - Vitals & Intake/Output Vital Signs: Vital Signs Temperature 97.3 F 07/30/22 07:48 Pulse Rate 72 07/30/22 07:48 Respiratory Rate 18 07/30/22 07:48 Blood Pressure 178/101 07/30/22 07:48 O2 Sat by Pulse Oximetry 96 07/30/22 07:48 Intake & Output: Intake & Output 07/27/22 07/28/22 07/29/22 07/30/22 11:59 11:59 11:59 11:59 Intake Total 1160 575 856 0876 Output Total 2150 1500 1500 3150 Balance -990 -980 -982 -1790 Weight 65.3 kg 65.3 kg 65.8 kg - Lab Result Diagrams: 07/26/22 05:48 07/30/22 05:00 Lab Results-Last 24 Hrs: Lab Results-Last 24 Hours 07/30/22 Range/Units 05:00 Sodium 135 L (137-145) mmol/L Potassium 3.9 (3.5-5.1) mmol/L Chloride 91 L (98-107) mmol/L Carbon Dioxide 32 H (22-30) mmol/L Anion Gap 16.0 H (5-15) MEQ/L BUN 64 H (9-20) mg/dL Creatinine 1.73 H (0.66-1.25) mg/dL Estimated GFR 41.4 ML/MIN Glucose 129 H (74-106) mg/dL Calcium 9.0 (8.4-10.2) mg/dL - Radiology Exams Ordered Rad Exams-Entire Visit: Radiology Procedures Category Date Time Status CHEST WITHOUT CONTRAST [CT] Urgent Exams 07/29/22 17:35 Completed - Procedures and Test Procedures and Tests throughout Hospitalization: Therapy Orders & Screens 07/25/22 21:38 Respiratory Therapy Assessment DAILY Comment: 07/26/22 02:02 Respiratory Therapy Consult ROUTINE Comment: Reason For Exam: 07/27/22 09:48 Incentive Spirometry TID Comment: Diagnosis: sob Discharge Exam General Appearance: no apparent distress Neurologic Exam: alert, oriented x 3, cooperative, manager interface II-XII nml as tested, normal mood/affect, nml cerebellar function Eye Exam: PERRL, EOMI, eyes nml inspection Ears, Nose, Throat Exam: normal ENT inspection Neck Exam: normal inspection, non-tender, supple, full range of motion Respiratory Exam: normal breath sounds, lungs clear Cardiovascular Exam: regular rate/rhythm, normal heart sounds Gastrointestinal/Abdomen Exam: soft, normal bowel sounds Back Exam: normal range of motion Extremity Exam: normal inspection, normal range of motion Skin Exam: normal color Final Diagnosis/Problem List - Final Discharge Diagnosis/Problem (1) COPD with exacerbation Status: Acute Assessment & Plan: Improved Code(s): J44.1 - CHRONIC OBSTRUCTIVE PULMONARY DISEASE W (ACUTE) EXACERBATION (2) Dyspnea Status: Acute Assessment & Plan: Improved Code(s): R06.00 - DYSPNEA, UNSPECIFIED (3) Wheezing Status: Acute Assessment & Plan: Improved Code(s): R06.2 - WHEEZING (4) CHF (congestive heart failure) Status: Acute Code(s): I50.9 - HEART FAILURE, UNSPECIFIED - Discharge Disposition: Home, Self-Care Condition: Good Prescriptions: New Cefdinir 300 mg PO BID #10 cap Prednisone 10 mg [Deltasone 10 mg] 10 mg PO UD #30 tablet Continue Furosemide 40 mg PO BID PRN PRN PRN Reason: greater than 1lb weight gain Atorvastatin Calcium 40 mg PO HS Metoprolol Tartrate 25 mg [Lopressor 25MG Tab] 25 mg PO BID Ranolazine [Ranolazine ER] 500 mg PO BID Hydralazine HCl 50 mg PO TID Apixaban [Eliquis] 5 mg PO BID Aspirin 81 mg PO DAILY Allopurinol 100 mg [Zyloprim 100 mg] 100 mg PO DAILY Ropinirole HCl 1 mg PO HS Fluticasone/Umeclidin/Vilanter [Trelegy Ellipta 100-62.5-25] 1 each IH DAILY #0 Instructions: Chronic Obstructive Pulmonary Disease (COPD) (DC), Heart Failure, Adult (DC) Follow up with: NESS STROUD [ACTIVE STAFF] - 08/10/22 1:00 pm ([facility]) YANIV HARO NP [Primary Care Provider] - 08/06/22 9:30 am ([facility]) Forms: Discharge Instructions
== END 2022-07-30 10:38 | disposition home or self-care (01) | DRG 192 ==
LOC: ED 21:04 → MED SURG 07-26 02:00 → OBSVTOIN 07-28 10:15
PROVIDERS: ADMIT Internal Medicine Critical Care Medicine; ATTEND Family Medicine
DX: J44.1 Chronic obstructive pulmonary disease with (acute) exacerbation (principal); R06.00 Dyspnea, unspecified; R06.2 Wheezing; I11.0 Hypertensive heart disease with heart failure; I50.9 Heart failure, unspecified; I25.10 Atherosclerotic heart disease of native coronary artery without angina pectoris; I73.9 Peripheral vascular disease, unspecified; Z79.01 Long term (current) use of anticoagulants; Z79.899 Other long term (current) drug therapy; Z20.828 Contact with and (suspected) exposure to other viral communicable diseases
CPT/HCPCS: 0241U; 36000; 36415; 71045; 71250; 80048; 80053; 83605; 83735; 83880; 84484; 85025; 85027; 85379; 93005; 93041; 93268; 94640; 94760; 94762; 96365; 96374; 99284; G0378; Q3014; J0696; J1940; J2920; J2930; A9270-GY

== ENCOUNTER 2022-08-17 06:44 | Emergency (ER) | payer MEDICARE ==
[2022-08-17] MEDS ORDERED: Sodium Chloride 0.9% 1000 ML 1,000 ML ONE (07:06)
[2022-08-17] MEDS ORDERED: Zemuron 100 MG/10 ML IV STA (07:12)
[2022-08-17] MEDS ORDERED: VERSED 5 MG/5 ML IV STA (07:12)
[2022-08-17 07:14] LABS: Absolute Neutrophil Ct (ANC) 6.47 x10^3/uL (1.4-6.9); BASOPHIL % 0.3 % (0.0-0.4); Basophil (Absolute #) 0.03 x10^3/uL (0-0.4); Eosinophil % 1.2 % (0.00-5.0); Eosinophil (Absolute #) 0.13 x10^3/uL (0-0.5); Hematocrit 43.7 % (42-50); Hemoglobin 13.7 g/dL (12.5-18.0); IMMATURE GRAN # 0.12 x10^3u/L (0.00-0.03); IMMATURE GRAN % 1.1 % (0.00-0.4); Lymphocyte (Absolute #) 3.29 x10^3/uL (1.0-4.6); Lymphocytes % 30.4 % (24.0-44.0); Mean Cell Volume 94.6 fL (78-100); Mean Corpuscular Hemoglobin 29.7 pg (26-32); Mean Corpuscular Hgb Concent. 31.4 g/dL (32-36); Mean Platelet Volume 9.5 fL (7.5-11.0); Monocyte (Absolute #) 0.79 x10^3/uL (0.0-1.3); Monocytes % 7.3 % (0.0-12.0); Neutrophil % 59.7 % (36.0-66.0); Platelet Count 208 x10^3/uL (150-450); Red Blood Count 4.62 x10^6/uL (4.1-5.6); Red Cell Distribution Width 14.5 % (11.5-14.0); White Blood Count 10.8 x10^3/uL (4.0-10.5)
[2022-08-17] MEDS ORDERED: Versed 50 MG/ 10 Ml MDV*** 50 MG in Sodium Chloride 0.9% 250 ML 240 ML IV PRN (07:15)
[2022-08-17 07:24] LABS: ALBUMIN 3.6 g/dL (3.5-5.0); ANION GAP 14.7 MEQ/L (5-15); Calcium 8.2 mg/dL (8.4-10.2); Creatinine 1 1.66 mg/dL (0.66-1.25); EST GLOMERULAR FILTRATION RATE 43.4 ML/MIN; MAGNESIUM 2.3 mg/dL (1.6-2.3); Potassium 4.1 mmol/L (3.5-5.1); Total Protein 6.6 g/dL (6.3-8.2)
--- NOTE | 2022-08-17 07:26 | ERPHSYRPT ---
- History of Present Illness Time Seen by Provider: 08/17/22 07:26 Source: patient, EMS Exam Limitations: clinical condition Physician History: This is a 72-year-old white male patient who was recently evaluated and admitted into our hospital for worsening shortness of breath. He was discharged on 07/28/2022 and that information was reviewed by me. Patient has history of COPD, CHF, atrial fibrillation on Eliquis, coronary artery disease having had a myocardial infarction in the past as well as a single cardiac stent in place. In addition he has a renal artery stent that was placed in 2014. Patient has a history of hyperlipidemia and hypertension. Yesterday, he was having worsening shortness of breath and the family attempted to convince him to come to the em ergency department yesterday but he refused. This morning, patient's shortness of breath worsened and ambulance service was contacted. Patient was placed on a nonrebreather by the paramedics where he was running 95 to 100% but then began to have desaturations and therefore the patient placed him on CPAP. Patient arrives to the emergency department attempting to pull off his CPAP mask, anxious with labored breathing and diaphoretic. Patient is becoming fatigued because of the respiratory distress he is experiencing. Timing/Duration: yesterday Severity of Dyspnea-Max: moderate (To severe) Severity of Dyspnea-Current: moderate (To severe) Possible Cause: occasional episodes Modifying Factors: Improves With: oxygen Associated Symptoms: anxiety, heart racing, sweating, No chest pain/discomfort Allergies/Adverse Reactions: No Known Drug Allergies Allergy (Verified 07/26/22 02:08) Home Medications: Atorvastatin Calcium 40 mg PO HS 05/14/14 [History] Furosemide 40 mg PO BID PRN PRN 05/14/14 [History] Metoprolol Tartrate 25 mg [Lopressor 25MG Tab] 25 mg PO BID 05/14/14 [His tory] Apixaban [Eliquis] 5 mg PO BID 02/20/19 [History] Hydralazine HCl 50 mg PO TID 02/20/19 [History] Ranolazine [Ranolazine ER] 500 mg PO BID 02/20/19 [History] Allopurinol 100 mg [Zyloprim 100 mg] 100 mg PO DAILY 07/26/22 [History] Aspirin 81 mg PO DAILY 07/26/22 [History] Ropinirole HCl 1 mg PO HS 07/27/22 [History] Hx Tetanus, Diphtheria Vaccination/Date Given: (UNKNOWN) Hx Influenza Vaccination/Date Given: Yes (10/23/2013) Hx Pneumococcal Vaccination/Date Given: Yes (01/01/2014) Travel Risk - International Travel Have you traveled outside of the country in past 3 weeks: No - Coronavirus Screening Are you exhibiting any of the following symptoms?: No Close contact with a COVID-19 positive Pt in past 14-21 Days: No - Vaccine Status Have you recieved a Covid-19 vaccination: Yes Costume Technician: Moderna - Vaccination Dates Date of 2cond Vaccination (if applicable): 05/02/2020 - Review of Systems Constitutional: No Symptoms Eyes: No Symptoms Ears, Nose, & Throat: No Symptoms Respiratory: Dyspnea, Wheezing Cardiac: No Symptoms Abdominal/Gastrointestinal: No Symptoms Genitourinary Symptoms: No Symptoms Musculoskeletal: No Symptoms Skin: No Symptoms Neurological: No Symptoms Psychological: Anxiety Endocrine: No Symptoms Hematologic/Lymphatic: No Symptoms Immunological/Allergic: No Symptoms All Other Systems: Reviewed and Negative - Past Medical History Pertinent Past Medical History: Yes Neurological History: No Pertinent History ENT History: Cataracts Cardiac History: Hypertension, Myocardial Infarction ([place]) Respiratory History: CHF, COPD Endocrine Medical History: No Pertinent History Musculoskeletal History: Arthritis GI Medical History: Hemorrhoids History: Other Psycho-Social History: No Pertinent History Male Reproductive Disorders: No Pertinent History Other Medical History: Kidney(?) Stent. Cardiac Stent. - Past Surgical History Past Surgical History: Yes Neuro Surgical History: No Pertinent History Cardiac: Cardiac Stent Respiratory: No Pertinent History Gastrointestinal: Appendectomy Genitourinary: Kidney Surgery Musculoskeletal: No Pertinent History Male Surgical History: No Pertinent History Other Surgical History: DOES HAVE ONE HEART STENT 03/2014, kidney stent 2014 - Social History Smoking Status: Former smoker Exposure to second hand smoke: No Drug Use: marijuana Patient Lives Alone: No - Nursing Vital Signs Nursing Vital Signs: Initial Vital Signs Temperature 96.9 F 08/17/22 06:45 Pulse Rate 122 H 08/17/22 06:45 Respiratory Rate 42 H 08/17/22 06:45 Blood Pressure 155/123 08/17/22 06:45 O2 Sat by Pulse Oximetry 100 08/17/22 06:45 - Physical Exam General Appearance: moderate distress, anxiety, lethargy Eye Exam: PERRL/EOMI, eyes nml inspection Ears, Nose, Throat Exam: hearing grossly normal, normal ENT inspection, normal pharynx Neck Exam: normal inspection, non-tender, supple, full range of motion Respiratory Exam: respiratory distress, accessory muscle use, rhonchi, wheezing (Bilateral) Cardiovascular/Chest Exam: tachycardia Abdominal/Gastrointestinal Exam: soft, normal bowel sounds, No tenderness Rectal Exam: not done Extremity Exam: non-tender, normal range of motion, normal inspection, normal capillary refill, no calf tenderness, no pedal edema, pelvis stable Neurologic Exam: instrument and control service person II-XII nml as tested, other (Patient in respiratory distress anxious agitated) Skin Exam: normal color, warm, dry Lymphatic Exam: No adenopathy SpO2 Interpretation: normal O2 Delivery: Room Air - Course Nursing assessment & vital signs reviewed: Yes EKG Interpreted by Me: RATE ([id number]), Sinus Tach, NORMAL AXIS, NORMAL INTERVALS, NORMAL QRS, NORMAL ST-T, Other Ordered Tests: Active Orders 24 hr Category Date Time Status CO2 Monitoring STAT Care 08/17/22 08:38 Active CHEST 1 VIEW (PORTABLE) Stat Exams 08/17/22 06:49 Completed ABG [ARTERIAL BLOOD GASES] Urgent Lab 08/17/22 07:20 Completed ABG [ARTERIAL BLOOD GASES] Urgent Lab 08/17/22 08:03 Completed BNPII [NT PRO BNPII] Stat Lab 08/17/22 07:06 Completed CBC W DIFF Stat Lab 08/17/22 07:06 Completed CMP Stat Lab 08/17/22 07:06 Completed Lactic Acid Urgent Lab 08/17/22 07:20 Completed MAGNESIUM Stat Lab 08/17/22 07:06 Completed TROPONIN Q4H Lab 08/17/22 07:06 Completed TROPONIN Q4H Lab 08/17/22 11:00 Ordered TROPONIN Q4H Lab 08/17/22 15:00 Ordered TROPONIN Q4H Lab 08/17/22 19:00 Ordered TROPONIN Q4H Lab 08/17/22 23:00 Ordered Intubate Patient STAT RT 08/17/22 07:54 Completed Ventilator Management STAT RT 08/17/22 08:38 Active Medication Summary Generic Name Dose Route Start Last Admin Trade Name Freq PRN Reason Stop Dose Admin Midazolam HCl 50 mg/ Sodium 250 mls @ 8.125 mls/hr 08/17/22 07:15 08/17/22 07:53 Chloride IV 09/16/22 07:14 0.05 mg/kg/hr .Q24H PRN 16.25 mls/hr SEDATION Titration Protocol 0.025 MG/KG/HR Rocuronium [place] 100 mg/ 100 mls @ 19.5 mls/hr 08/17/22 07:35 08/17/22 07:40 Sodium Chloride IV 09/16/22 07:34 5 mcg/kg/min .Q5H8M PRN 19.5 mls/hr PARALYSIS FOR VENT Administration Protocol 5 MCG/KG/MIN Midazolam HCl 1 - 2 mg 08/17/22 07:40 08/17/22 07:34 Midazolam Hcl 5 Mg/5 Ml Vial IV 09/16/22 07:39 2 mg [id number] PRN Administration AGITATION Discontinued Medications Generic Name Dose Route Start Last Admin Trade Name Freq PRN Reason Stop Dose Admin Albuterol/Ipratropium 3 ml 08/17/22 08:04 08/17/22 07:10 Ipratropium/Albuterol Sulfate 3 Ml Ampul.Neb IH 08/17/22 08:05 3 ml STAT ONE Administration Methylprednisolone Sodium 0 mg 08/17/22 07:57 08/17/22 08:02 Succinate 125 mg/ Sterile IV 08/17/22 07:58 125 mg Water 2 ml STAT ONE Administration Sodium Chloride Confirm 08/17/22 07:06 Sodium Chloride 0.9% 1000 Ml Administered 08/17/22 07:07 Dose 1,000 mls @ ud .ROUTE .STK-MED ONE Sodium Chloride 1,000 mls @ 999 mls/hr 08/17/22 07:51 08/17/22 07:54 Sodium Chloride 0.9% 1000 Ml IV 08/17/22 08:51 999 mls/hr .Q1H1M STA Administration Ceftriaxone Sodium/Dextrose 1 g in 50 mls @ 100 mls/hr 08/17/22 09:05 Rocephin 1 Gm-D5w 50 Ml Bag IV 08/17/22 09:34 STAT STA Methylprednisolone Sodium Succinate Confirm 08/17/22 08:02 Methylprednis Sod Succ 125 Mg/2 Ml Vial Administered 08/17/22 08:03 Dose 125 mg .ROUTE .STK-MED ONE Midazolam HCl 5 mg 08/17/22 07:12 08/17/22 07:03 Midazolam Hcl 5 Mg/5 Ml Vial IV 08/17/22 07:13 5 mg STAT STA Administration Midazolam HCl Confirm 08/17/22 07:34 Midazolam Hcl 5 Mg/5 Ml Vial Administered 08/17/22 07:35 Dose 5 mg .ROUTE .STK-MED ONE Morphine Sulfate 4 mg 08/17/22 07:53 Morphine Sulfate 4 Mg/Ml Injection IV 08/17/22 07:54 STAT ONE Ondansetron HCl 4 mg 08/17/22 07:53 08/17/22 08:02 Ondansetron Hcl 4 Mg/2 Ml Vial IV 08/17/22 07:54 4 mg STAT ONE Administration Ondansetron HCl Confirm 08/17/22 08:02 Ondansetron Hcl 4 Mg/2 Ml Vial Administered 08/17/22 08:03 Dose 4 mg .ROUTE .STK-MED ONE Rocuronium [place] 80 mg 08/17/22 07:12 08/17/22 07:09 Rocuronium [place] 100 Mg/10ml Vial IV 08/17/22 07:13 80 mg STAT STA Administration Sterile Water Confirm 08/17/22 08:02 Water For Injection,Sterile 10 Ml Vial Administered 08/17/22 08:03 Dose 10 ml IJ .STK-MED ONE Lab/Rad Data: Laboratory Result Diagrams 08/17/22 07:06 08/17/22 07:06 Laboratory Results 08/17/22 08/17/22 08/17/22 Range/Units 08:03 07:20 07:06 WBC (4.0-10.5) x10^3/uL RBC (4.1-5.6) x10^6/uL Hgb (12.5-18.0) g/dL Hct (42-50) % MCV (78-100) fL MCH (26-32) pg MCHC (32-36) g/dL RDW (11.5-14.0) % Plt Count (150-450) x10^3/uL MPV (7.5-11.0) fL Gran % (36.0-66.0) % Immature Gran % (Auto) (0.00-0.4) % Nucleat RBC Rel Count (0.00-0.1) % Eos # (Auto) (0-0.5) x10^3/uL Immature Gran # (Auto) (0.00-0.03) x10^3u/L Absolute Lymphs (auto) (1.0-4.6) x10^3/uL Absolute Monos (auto) (0.0-1.3) x10^3/uL Absolute Nucleated RBC (0.00-0.01) x10^3u/L Lymphocytes % (24.0-44.0) % Monocytes % (0.0-12.0) % Eosinophils % (0.00-5.0) % Basophils % (0.0-0.4) % Absolute Granulocytes (1.4-6.9) x10^3/uL Basophils # (0-0.4) x10^3/uL Puncture Site LEFT RADIAL lr pCO2 56 H 45 (35-45) mmHg pO2 140 H* 243 H* (75-100) mmHg Base Excess -4.8 L -5.0 L (-2.0-2.0) O2 Saturation 97.9 97.9 (94-100) g/dF ABG pH 7.23 L* 7.29 L (7.35-7.45) ABG HCO3 23.5 21.6 L (22-28) ABG O2 Sat (Measured) 99.7 99.5 (95-100) % Osito Test NOT APPLICABLE na A-a Gradient 147 129 a/A Ratio 0.49 0.65 Hemoglobin 13.3 13.6 Carboxyhemoglobin 1.7 1.2 (0.0-6.9) % THgb Methemoglobin 0.1 L 0.4 L (1.4-1.5) % Temperature 37.0 37.0 C POC O2 Flow Rate 50 60 % Vent Mode ac AVAPS Vent Rate 16 14 /MIN Tidal Volume 600 500 cc PEEP 5.0 8 cmH2O Sodium (137-145) mmol/L Potassium 3.7 4.3 (3.5-5.1) mmol/L Chloride (98-107) mmol/L Carbon Dioxide (22-30) mmol/L Anion Gap (5-15) MEQ/L BUN (9-20) mg/dL Creatinine (0.66-1.25) mg/dL Estimated GFR ML/MIN Glucose (74-106) mg/dL Lactic Acid 5.0 H (0.4-2.0) Calcium (8.4-10.2) mg/dL Magnesium (1.6-2.3) mg/dL Total Bilirubin (0.2-1.3) mg/dL AST (17-59) U/L ALT (0-50) U/L Alkaline Phosphatase (38-126) U/L Troponin I (0.000-0.034) ng/mL NT-Pro-B Natriuret Pep 4030 (<300) pg/mL Serum Total Protein (6.3-8.2) g/dL Albumin (3.5-5.0) g/dL 08/17/22 08/17/22 08/17/22 Range/Units 07:06 07:06 07:06 WBC 10.8 H (4.0-10.5) x10^3/uL RBC 4.62 (4.1-5.6) x10^6/uL Hgb 13.7 (12.5-18.0) g/dL Hct 43.7 (42-50) % MCV 94.6 (78-100) fL MCH 29.7 (26-32) pg MCHC 31.4 L (32-36) g/dL RDW 14.5 H (11.5-14.0) % Plt Count 208 (150-450) x10^3/uL MPV 9.5 (7.5-11.0) fL Gran % 59.7 (36.0-66.0) % Immature Gran % (Auto) 1.1 H (0.00-0.4) % Nucleat RBC Rel Count 0.0 (0.00-0.1) % Eos # (Auto) 0.13 (0-0.5) x10^3/uL Immature Gran # (Auto) 0.12 H (0.00-0.03) x10^3u/L Absolute Lymphs (auto) 3.29 (1.0-4.6) x10^3/uL Absolute Monos (auto) 0.79 (0.0-1.3) x10^3/uL Absolute Nucleated RBC 0.00 (0.00-0.01) x10^3u/L Lymphocytes % 30.4 (24.0-44.0) % Monocytes % 7.3 (0.0-12.0) % Eosinophils % 1.2 (0.00-5.0) % Basophils % 0.3 (0.0-0.4) % Absolute Granulocytes 6.47 (1.4-6.9) x10^3/uL Basophils # 0.03 (0-0.4) x10^3/uL Puncture Site pCO2 (35-45) mmHg pO2 (75-100) mmHg Base Excess (-2.0-2.0) O2 Saturation (94-100) g/dF ABG pH (7.35-7.45) ABG HCO3 (22-28) ABG O2 Sat (Measured) (95-100) % Osito Test A-a Gradient a/A Ratio Hemoglobin Carboxyhemoglobin (0.0-6.9) % THgb Methemoglobin (1.4-1.5) % Temperature C POC O2 Flow Rate % Vent Mode Vent Rate /MIN Tidal Volume cc PEEP cmH2O Sodium 136 L (137-145) mmol/L Potassium 4.1 (3.5-5.1) mmol/L Chloride 98 (98-107) mmol/L Carbon Dioxide 28 (22-30) mmol/L Anion Gap 14.7 (5-15) MEQ/L BUN 29 H (9-20) mg/dL Creatinine 1.66 H (0.66-1.25) mg/dL Estimated GFR 43.4 ML/MIN Glucose 223 H (74-106) mg/dL Lactic Acid (0.4-2.0) Calcium 8.2 L (8.4-10.2) mg/dL Magnesium 2.3 (1.6-2.3) mg/dL Total Bilirubin 1.00 (0.2-1.3) mg/dL AST 150 H (17-59) U/L ALT 100 H (0-50) U/L Alkaline Phosphatase 122 (38-126) U/L Troponin I 0.082 H* (0.000-0.034) ng/mL NT-Pro-B Natriuret Pep (<300) pg/mL Serum Total Protein 6.6 (6.3-8.2) g/dL Albumin 3.6 (3.5-5.0) g/dL - Progress Progress: improved Air Movement: poor Progress Note: 08/17/22 07:51 Postintubation chest x-ray was interpreted by me. There is a left upper lobe pulmonary nodule. The ET tube is in the trachea above the boom. No obvious pleural effusions or infiltrate present. 08/17/22 09:06 Chest x-ray was interpreted by the radiologist and I reviewed the impression. There is a left infrahilar infiltrate versus atelectasis and new mild interstitial edema without consolidation. This patient's medical issue is 1 of high complexity. Level complexity in the work-up performed is based on review of the patient's past medical history, review of the patient's medication list, review of the patient's drug allergy list, history present illness and physical findings on examination. The work-up includes chest x-ray, EKG, ABG, CBC, CMP, troponin, BNP level, mechanical lisa tilation, use of Versed, rocuronium for sedation and paralyzation for mechanical ventilation. I reviewed the above work-up. Patient has several significant/severe medical issues including respiratory distress, acute CHF exacerbation, elevated troponin, chronic renal failure. The family desire the patient to be transferred to a facility where his specialists are which is [facility]. 08/17/22 09:10 08/17/22 09:[address] Phillip who is the emergency room physician at [facility] in [facility]. I reviewed the patient history, patient's physical findings, history of present illness and the work-up results. He accepts the patient in transfer. Blood Culture(s) Obtained: Yes Counseled pt/family regarding: lab results, diagnosis, need for follow-up, rad results Medical Desision Making - Discussion of managment Care discussed with:: specialist (Emergency room physician at [facility] Dr. Phillip) Reviewed:: Test results, Need for additional workup - Diagnostic Testing Diagnostic test were ordered, analyzed, and reviewed by me: Yes Radiological Interpretation: Interpreted by me, Reviewed by me, Teleradiologist Report - Risk of complications The pt has a high risk of morbidity or mortality based on: Decision regarding hospitilization or escalation of hosp level of care - Departure Departure Disposition: Transfer Clinical Impression: Respiratory distress, Pneumonia involving left lung, Hypoxia, On mechanically assisted ventilation, Acute exacerbation of CHF (congestive heart failure), Elevated troponin, Chronic renal failure Condition: Serious Critical Care Time: Yes Critical Care Time(excluding separately billable procedures): Critical 30-74 mins (50) Referrals: YANIV HARO, FIELD SUPPORT SPECIALIST [Primary Care Provider] - Follow up/PCP as directed Instructions: Heart Failure
[2022-08-17] MEDS ORDERED: VERSED 5 MG/5 ML ONE (07:34)
[2022-08-17] MEDS ORDERED: Zemuron 100 MG/10 ML 100 MG in Sodium Chloride 0.9% 90 ML IV PRN (07:35)
[2022-08-17] MEDS ORDERED: VERSED 5 MG/5 ML IV PRN (07:40)
[2022-08-17] MEDS ORDERED: Sodium Chloride 0.9% 1000 ML 1,000 ML IV STA (07:51)
[2022-08-17 07:52] LABS: A-aADO2 129; ABG HEMOGLOBIN 13.6; ABG POTASSIUM 4.3 (3.5-5.1); ABG SITE lr; ARTERIAL BLD GAS O2 SATURATION 99.5 % (95-100); ARTERIAL BLD GAS TIDAL VOLUME 500 cc; ARTERIAL BLOOD GAS FIO2 60 %; ARTERIAL BLOOD GAS PCO2 45 mmHg (35-45); ARTERIAL BLOOD GAS PEEP 8 cmH2O; ARTERIAL BLOOD GAS PO2 243 mmHg (75-100); ARTERIAL BLOOD GAS VENT MODE AVAPS; ARTERIAL BLOOD GAS VENT RATE 14 /MIN; ARTERIAL BLOOD GAS pH 7.29 (7.35-7.45); CARBOXYHEMOGLOBIN 1.2 % THgb (0.0-6.9); HCO3- 21.6 (22-28); HGB O2 SAT 97.9 g/dF (94-100); Methhemoglobin 0.4 % (1.4-1.5); paO2 pAO1 0.65
[2022-08-17] MEDS ORDERED: MORPHINE SULFATE 4 MG INJ IV ONE (07:53)
[2022-08-17] MEDS ORDERED: Zofran 4 MG/2 ML VIAL IV ONE (07:53)
[2022-08-17] MEDS ORDERED: solu-MEDROL 125 MG, Sterile H2O 10 ml 2 ML IV ONE ×2 (07:57)
[2022-08-17] MEDS ORDERED: solu-MEDROL ONE (08:02)
[2022-08-17] MEDS ORDERED: Sterile H2O 10 ml IJ ONE (08:02)
[2022-08-17] MEDS ORDERED: Zofran 4 MG/2 ML VIAL ONE (08:02)
[2022-08-17 08:04] VITALS: O2SAT 100
[2022-08-17] MEDS ORDERED: DUONEB 0.5-3 MG/3 ml Neb IH ONE (08:04)
[2022-08-17 08:05] LABS: A-aADO2 147; ABG HEMOGLOBIN 13.3; ABG POTASSIUM 3.7 (3.5-5.1); ARTERIAL BLD GAS O2 SATURATION 99.7 % (95-100); ARTERIAL BLD GAS TIDAL VOLUME 600 cc; ARTERIAL BLOOD GAS BASE EXCESS -4.8 (-2.0-2.0); ARTERIAL BLOOD GAS FIO2 50 %; ARTERIAL BLOOD GAS PCO2 56 mmHg (35-45); ARTERIAL BLOOD GAS PO2 140 mmHg (75-100); CARBOXYHEMOGLOBIN 1.7 % THgb (0.0-6.9); HCO3- 23.5 (22-28); HGB O2 SAT 97.9 g/dF (94-100); Methhemoglobin 0.1 % (1.4-1.5); paO2 pAO1 0.49
[2022-08-17 08:06] LABS: ABG SITE LEFT RADIAL; ARTERIAL BLOOD GAS VENT MODE ac; ARTERIAL BLOOD GAS VENT RATE 16 /MIN; ARTERIAL BLOOD GAS pH 7.23 (7.35-7.45)
--- NOTE | 2022-08-17 08:46 | XRAY ---
Indication: Endotracheal tube and OG tube placement. Comparison: July 25, 2022 Portable chest demonstrates new endotracheal tube tip approximately 10 cm above boom and orogastric tube tip in stomach. Lungs remain hyperinflated with grossly stable left infrahilar infiltrate/atelectasis. New mild interstitial edema without consolidation/effusion. Heart not enlarged.
[2022-08-17] MEDS ORDERED: ROCEPHIN 1 Gm-D5w 50 ml Bag** 1 G/50 ML IVPB IV STA (09:05)
[2022-08-17] MEDS ORDERED: ROCEPHIN 1 Gm-D5w 50 ml Bag** 1 G/50 ML IVPB IV ONE (10:17)
[2022-08-17 10:38] VITALS: BP 140/98; PULSE 92
[2022-08-17 11:05] LABS: Appearance Clear (Clear); Bacteria None Seen /HPF (None Seen); Bilirubin Negative (Negative); Blood Negative (Negative); Epithelial Cells None Seen /HPF (None Seen); Glucose, Urine Negative (Negative); Hyaline Casts NONE SEEN /LPF (0-2); Ketones Negative (Negative); Leukocyte Esterase Trace (Negative); Nitrite Negative (Negative); Ph 5.5 (4.6-8.0); Protein,Urine Dip Negative (Negative); Specific Gravity 1.015 (1.005-1.030); Urobilinogen 0.2 mg/dL (0.2)
[2022-08-17 11:07] LABS: ADD URINE CULTURE? ORDERED SEPARATELY (NO)
== END 2022-08-17 10:42 | disposition short-term general hospital (02) ==
LOC: ED 06:44
DX: J18.9 Pneumonia, unspecified organism (principal); R06.03 Acute respiratory distress; R06.02 Shortness of breath; R09.02 Hypoxemia; Z99.11 Dependence on respirator [ventilator] status; R77.8 Other specified abnormalities of plasma proteins; I13.0 Hypertensive heart and chronic kidney disease with heart failure and stage 1 through stage 4 chronic kidney disease, or unspecified chronic kidney disease; I50.9 Heart failure, unspecified; N18.9 Chronic kidney disease, unspecified; Z79.01 Long term (current) use of anticoagulants; Z79.899 Other long term (current) drug therapy
CPT/HCPCS: 31500; 36000; 36415; 36600; 51702; 71045; 80053; 81001; 82375; 82803; 83605; 83735; 83880; 84484; 85025; 87070; 87077; 87086; 87186; 94002; 94640; 96360; 96365; 96367; 96374; 96375; 96376; 99285; 99291; J0696; J2250; J2405; J2930; A9270-GY